=== PATIENT | female | born 1970 | race Caucasian/White ===

== ENCOUNTER 2022-09-19 14:17 | Outpatient (CLI) | payer OTHER, SELFPAY ==
--- OUTSIDE RECORDS SUMMARY | 2022-09-19 14:23 | XMS_ITS ---
:1970 Author Care Team Providers Name Role Phone [facility] Primary Care Provider [phone] Allergies Code Code System Name Reaction Severity Status Onset Penicillins ? ? Active ? Medications Name Status Start Date Stop Date ? ? alprazolam 0.5 mg tablet Active ? Not domenica ilable fluoxetine 20 mg capsule Active ? Not domenica ilable TAKE 1 CAPSULE BY MOUTH EVERY DAY levothyroxine 75 mcg tablet Active ? Not available TAKE 1 TABLET (75 MCG) BY MOUTH ONCE DAILY. simvastatin Completed ? 08/07/2022 simvastatin 20 mg tablet Active ? Not domenica ilable Synthroid 175 mcg tablet Completed ? 022 Take 1 tablet every day by oral route. Xanax Active ? Not available Problems No Known Problems Procedures Date Name Performed by ? 12/14/2020 US, Transvaginal [facility] [address] [address] [place], [place] [address] (Work Place) 12/14/2020 US, Pelvis [facility] [address] [address] [place], [place] [address] (Work Place) 12/14/2020 US, Pelvis, Transabdominal + [facility] [place] Transvaginal [address] [place], [place] [address] (Work Place) 08/07/2022 [facility] Radiology Department [address] [place] [address] (Work Place) Results Lab Results Date Name Specimen Result Interpretation Description Value Range Status Address ? 08/07/2022 Pap Test, Cervix ? Gynecologic see ? Deana Parekh Slide(s), Cytology results Fair view: Cervical below [address], [place] 08/07/2022 HPV DNA, ? Other hr negative negativ Final [facility] High-risk HPV e [place] w: [address], [place] ? ? ? Hpv16 Dna negative negativ Final [facility] [place]: [address], [place] ? ? ? Hpv18 Dna negative negativ Final [facility] [place]: [address], [place] ? ? ? Final see note ? Final [facility] Diagnosis below [place] w: [address], [place] 12/14/2020 Pap, LB + CERVIX&CERVI ? Case Report see note ? Complete [place] Reflex hr X Memoria l [facility] Health - Lab: [address], Tanner baumann 12/14/2020 Pathology CERVIX, ? Case Report see note ? C omplete [place] Study POLYPECTOMY& Noman rial CERVIX, Health - POLYPECTOMY Lab: [address], Tanner baumann Past Encounters 08/07/2022 Screening for Osteoporosis; Screening fo r Malignant Neoplasm of Cervix; Hip Pain; Vulvitis Beena Chaves MD: [address] [facility], [address], [place] [address], Ph. Social History Tobacco Smoking Status Former Smoker Notes: Tobacco *Status: Former Vaccine List None recorded. Plan of Care Patient Instructions BD ORDER Reminders Provider Appointments None recorded. ? ? Lab None recorded. ? ? Referral None recorded. ? ? Procedures None recorded. ? ? Surgeries None recorded. ? ? Imaging None recorded. ? ? Vitals 08/07/2022 12:00PM G_ANNUAL EXAM Height Weight BMI Blood Pressure 5 ft 4 in 177 lbs 30.4 kg/m2 159/91 mm[Hg] 12/14/2020 11:30AM G_NEW PT ANNUAL Height Weight BMI Blood Pressure 5 ft 4 in 180 lbs 30.9 kg/m2 160/90 mm[Hg] 09/22/2019 Height Weight BMI Blood Pressure 5 ft 3.96 in 162 lbs 27.81 kg/m2 120/72 mm[Hg] 03/19/2016 Height Weight BMI Blood Pressure 5 ft 3.96 in 180 lbs 30.90 kg/m2 142/88 mm[Hg] 01/24/2015 Height Weight BMI Blood Pressure 5 ft 3.96 in 180 lbs 30.90 kg/m2 (1) 136/88 mm[H g] (2) 148/72 mm[Hg ] 10/12/2013 Height Weight BMI Blood Pressure 5 ft 3.96 in 180 lbs 30.90 kg/m2 140/80 mm[Hg] 02/18/2012 Height Weight BMI Blood Pressure 5 ft 3.96 in 180 lbs 30.90 kg/m2 126/82 mm[Hg] 10/30/2010 Height Weight BMI Blood Pressure 5 ft 3.96 in 168 lbs 28.84 kg/m2 122/74 mm[Hg]
--- OUTSIDE RECORDS SUMMARY | 2022-09-19 14:23 | XMS_ITS | Encounter Summary ---
:1970 Author Care Team Providers Name Role Phone [facility] Primary Care Provider [phone] Reason for Visit *ANNUAL EXAM 40 - 64 POSTMENOPAUSAL Assessment and Plan Assessment Note LABS WITH PRIMARY 1. Screening for osteoporosis ? DEXA 2. Screening for malignant neoplasm of cervix ? Pap test, slide(s), cervical ? handling fee* 3. Hip pain DOES WORK OUT AND NO PAIN ON EXAM ADN ? LOWER QUAD VS HIP SO IF WANTS CAN DO CT BUT ALSO IF FEELS HIP REV TO PT AND FORM SEN T 4. Vulvitis POST FORCHETTE SL WHITE/BOSS AND RECENT INTERCOURSE PAINFUL SO LUBE REV AND HCTX CREAM AND RTC 5-6 WKS ADN IF STILL THERE BX ADN NO INTERCOURSE 1 WK BF EXAM Discussion Note colonoscopy mammogram bone density and calcium rev Patient educational handouts: No information available. Plan of Care Patient Instructions BD ORDER Reminders Provider Appointments None recorded. ? ? Lab Pap Test, Slide(s), 08/07/2022 [facility] Cervical Referral None recorded. ? ? Procedures None recorded. ? ? Surgeries None recorded. ? ? Imaging Dexa 08/07/2022 [facility] Radiology Depart ment Medications Name Start Date ? ? alprazolam 0.5 mg tablet ? TAKE 0.5-1 TABLETS (0.25-0.5 MG) BY MOUTH 2 TIMES QUIANA LY IF NEEDED. fluoxetine 20 mg capsule ? TAKE 1 CAPSULE BY MOUTH EVERY DAY levothyroxine 75 mcg tablet ? TAKE 1 TABLET (75 MCG) BY MOUTH ONCE DAILY. simvastatin 20 mg tablet ? TAKE 1 TABLET BY MOUTH AT BEDTIME Xanax ? Medications Administered None recorded. Vitals Height Weight BMI Blood Pressure 5 ft 4 in 177 lbs 30.4 kg/m2 159/91 mm[Hg] Results Lab Results Date Name Specimen Result Interpretation Description Value Range Status Address ? 08/07/2022 Pap Test, Cervix ? Gynecologic see ? Deana garcia [facility] Slide(s), Cytology results [place] view: [address], [place] Allergies Code Code System Name Reaction Severity Onset Penicillins ? ? ? Problems No Known Problems Procedures Date Name Performed by ? 08/07/2022 [facility] Radiology Department [address] [place] [address] (Work Place) Vaccine List None recorded. Social History Tobacco Smoking Status Former Smoker Notes: Tobacco *Status: Former What type of diet are you REGULAR following? What is the highest grade or level CK10210-5 of school you have completed or the highest degree you have received? Marital status Notes: Has tobacco cessation counseling N been provided? Are you currently employed? Y What was the date of your most 08/07/2022 recent tobacco screening? Do you have an advanced directive? N How many times per week do you 5-7 times per week exercise? Do you use any illicit or N recreational drugs? Is blood transfusion acceptable in Y an emergency? History of domestic violence N Notes: De nies any history of domestic violence What is your exercise level? Moderate Notes: Ex ercises on a regular basis *Note: 2-5 TORRIE RS WEEKLY What is your relationship status? Are you currently in school? N What is your level of alcohol Occasional consumption? How many times per week do you 1-2 times per week consume alcohol? Are you sexually active? Y Notes: Sexual ly active What is your level of caffeine Moderate Notes: Caffeine *Status: consumption? 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 Family History Relation Problem Onset Age of Age Notes Father Family history: neoplasm (No N/A Fam francisco History of - trachea/bronchus/lung Information) Canc er; Lung Mother Family history of (No N/A Family His tory of Cardiovascular disease Information) Hyper tension Mother Family history of (No N/A Family His tory of endocrine disorders Information) Hyperlip idemia Mother Heart disease (No N/A Heart Disease Information) Sister Family history of mental (No N/A Fam francisco History of disorder Information) Anxiety Sister Family history of Anemia (No N/A Fam francisco History of Information) Anemia Mother Diabetes mellitus (No N/A (No Notes) Information) Functional Status Unknown. Past Encounters 08/07/2022 Screening for Osteoporosis; Screening fo r Malignant Neoplasm of Cervix; Hip Pain; Vulvitis Beena Chaves MD: [address] [facility], [address], [place] [address], Ph. History of Present Illness Note: <p>Patient is a {{sexually active* non-sexually active}} menopausal female. She {{denies* endorses}} experiencing post-menopausal bleeding.</p><p>She {{denies any concerning menopausal symptoms* endorses having menopausal symptoms including:}}.</p><p>Last pap smear was {{never 1 year ago 2 years ago three years ago 4 years ago 5 years ago unknown many years ago [id number]#}}. I reviewed with the patient today ASCCP guidelines for recommended frequency of pap smear testing.Discussed that typically we discontinue cervical cancer screening at age 65 unless she has a concerning history.</p><p>She {{desires declines*}} STD testing today. She {{endorses denies*}} pain with intercourse.</p><p>She is {{due up-to-date*}} with colonoscopy.</p><p>She is {{due up-to-date*}} with mammography.</p><p>We reviewed the importance of osteoporosis prevention. Calcium and vitamin D supplementation, along with weight-bearing exercise, discussed today.</p><p>Today, patient has {{no some}} complaints that she wants to address. Past medical and surgical history were reviewed again today. Medication and allergy list made current.</p><p>She reports feeling {{safe* unsafe}} in her relationships. She {{endorses denies*}} history of abuse. She {{endorses* denies}} history of anxiety.</p>Review of Systems: ROS as noted in the HPI Review of Systems None recorded. Physical Exam ? Annual Exam ([facility]) Reported By: Patient Constitutional: *General Appearance: healthy -appearing, well-nourished, well-developed Head: Head: normocephalic Neck: *Thyroid: no enlargement, no nodules, non-tender Lymph Nodes: *Palpation: normal Cardiovascular: *Auscultation: RRR, no murmu r. *Peripheral Vascular: no varicosities, no edema Lungs: *Respiratory Effort: no acce ssory muscle usage, no intercostal retractions. *Auscultation: clear to auscultation, no wheezing, no rales/crackles, no rhonch i. Inspection: normal, normal respiratory rate *Breast: Bilateral: no skin changes, nipple appearance: normal, no abnormal nipple secretions, no tenderness, no masses palpable. Right Breast: normal. Left B reast: normal Abdomen: *Inspection/Palpation/Auscul tation: non-distended, no tenderness, no rebound, no g uarding, soft, no hepatomegaly, no splenomegaly. *Hernia: none palpated Back: Appearance normal. Palpation no costovertebral angle tenderness Female Genitalia: Vulva: no masses, no atrophy , no lesions. Mons: normal, no erythema, no excoriation, no atrophy, no lesions, no vesicles/ ulcers, no masses, no swelli ng, no tenderness. Labia Majora: normal, no erythema, no exco riation, no atrophy, no discoloration, no lesions, n o vesicles/ ulcers, no masses, no swelling, no tenderness. Lab ia Minora: normal, no erythema, no excoriation, no atrophy, no discoloration, no lesions, no vesicles, no masses, no swel ling, no tenderness. Introitus: normal. Bartholin's Gland: n ormal. *Vagina: normal, no discharge, no blood present, no erythema, no atrophy, no lesions, no ulcers, no swell ing, no masses, no tenderness, no prolapse. *Cervix: grossly n ormal, no lesions, no discharge, no bleeding, no cervical motion tenderness. *Uterus: normal size, normal contour, midline, no uterine prolapse, mobile, non-tender. *Urethral Meatus / Urethra: normal meatus, no discharge, well supported ur ethra, no masses, no tenderness. *Bladder: non-distended, no palpable mass, non-tender. *Adnexa/Parametria: no mass palpable, no tenderness Rectum: *Anus & Perineum: normal per ianal skin, no anal fissure, no hemorrhoids, normal perineum . *Digital Rectal: sphincter tone normal, no hemorrhoids, no m asses, normal rectovaginal septum Extremities: Legs: normal. Arms: normal. Pulses: normal Skin: *Appearance: no rashes, no l esions Neurological System: Impressions: motor: no defic its, sensory: no deficits Psychiatric: *Orientation: to person, to place, to time. *Mood and Affect: active and alert, normal moo d, normal affect
--- OUTSIDE RECORDS SUMMARY | 2022-09-19 14:23 | XMS_ITS | Clinical Summary ---
:1970 Author Organization [facility] Address [address], [place] [address] Care Team Providers Name Role Phone Chandrakant Montiel MD Primary Care Provider Source Comments You are receiving this document as you are listed as the primary care provider,follow-up provider, or the patient has been referred to you for consultation.This is in compliance with the Medicare and Medicaid EHR Incentive Program,which states Providers who transition their patient to another setting of careor provider of care or refers their patient to another provider of care shouldprovide summarycare record for each transition of care or referral. [facility] Allergies Active Allergy Reactions Severity Noted Date Comments Penicillins Rash 09/22/2014 Medications Medication Sig Dispensed Refills Start Date End Date Status FLUoxetine (AKA PROZAC) Take 20 mg by 0 09/22/2014 Active 20 MG capsule mouth daily (every 24 hours). levothyroxine Take 75 mcg by 0 A ctive (SYNTHROID) 75 MCG mouth daily. tablet ALPRAZolam (XANAX) 0.25 Take 0.5 mg by 0 Active MG tablet mouth at bedtime as needed. Immunizations Name Administration Dates Next Due Flu Vac Preserv Free (3+yrs) 09/04/2010, 08/22/2009 H1n1 Miv Sanofi 3+ Yr (Injected) 10/26/2009 Influenza IIV4 (Quadrivalent) 0.5mL 08/14/2016, 08/31/2014, 08/28/2013 (30640) Social History Tobacco Use Types Packs/Day Years Used Date Smoking Tobacco: Former Smokeless Tobacco: Never Sex Assigned at Date Recorded Not on file Plan of Treatment Health Maintenance Due Date Last Done Comments Cervical Cancer Screening 1970 Due Colon Cancer Screening Plan 1970 Due Hep C Screening (Preventive 1970 Services) HepB (1) 1970 Mammogram 1970 COVID-19 Vaccine (#1) 04/04/1971 HIV Screening (Preventive 1986 Services) Adult Preventive Visit 1988 Cholesterol 2015 Zoster/Shingles (1 of 2) 2020 Influenza (#1) 2022 09/13/2020, 08/31/2020, 08/26/2019, Additional history exists DTaP/Tdap/Td (2 - Tdap) 04/27/2026 04/27/2016 HepA Aged Out No longer eligib le based on patient 's age to complete this topic Hib Aged Out No longer eligib le based on patient 's age to complete this topic IPV (Polio) Aged Out No longer eligib le based on patient 's age to complete this topic MCV4 Aged Out No longer eligib le based on patient 's age to complete this topic Pneumococcal Aged Out No longer eligib le based on patient 's age to complete this topic Insurance Payer Benefit Plan / Subscriber ID Effective Dates Phone Addre ss Type Group [employer] S[employer]F [employer]ED [id number] 2013-Present Commercial Care Teams Can Operator Relationship Specialty Start Date End Date Chandrakant Montiel MD PCP - General 09/22/14 [id number] [place] [address]
--- OUTSIDE RECORDS SUMMARY | 2022-09-19 14:23 | XMS_ITS | Encounter Summary ---
:1970 [facility] Address [address] [place] [address] Care Team Providers Name Role Phone Chandrakant Montiel MD Primary Care Provider Encounter Details Date Type Department Care Team Description 08/14/2016 Immunization [facility], Cole Boo Need for prophylactic Medicine vaccination and [address] [address] inoculation against [place], [place] influenza ([facility] ramin Dx) [id number] Social History Tobacco Use Types Packs/Day Years Used Date Smoking Tobacco: Never Assessed Sex Assigned at Date Recorded Not on file documented as of this encounter Plan of Treatment Not on filedocumented as of this encounter Visit Diagnoses Diagnosis Need for prophylactic vaccination and in oculation against influenza - Primary documented in this encounter Care Teams Facilities Locator Relationship Specialty Start Date End Date Chandrakant Montiel MD PCP - General 09/22/14 [address] [facility] [address] [place] [address] documented as of this encounter
--- OUTSIDE RECORDS SUMMARY | 2022-09-19 14:23 | XMS_ITS | Encounter Summary ---
:1970 Author Organization [employer] Address [address] [place] [address] Care Team Providers Name Role Phone Chandrakant Montiel MD Primary Care Provider Reason for Visit Reason Comments FULL BODY CHECK Encounter Details Date Type Department Care Team Description 07/23/2017 Office Visit [facility] [address] April Kenyon MD Benign neoplasm of Dermatology [address] skin of trunk [address] [facility] (Primary Dx) [place] [address] [phone] Social History Tobacco Use Types Packs/Day Years Used Date Smoking Tobacco: Former Smokeless Tobacco: Never Sex Assigned at Date Recorded Not on file documented as of this encounter Progress Notes April Kenyon MD - 07/23/2017 12:30 PM CDT Chief complaint: Skin check HPI: Taylor Shea is a 46 y.o. female here for evaluation of a routine skin check. Denies any painful, bleeding, nonhealing spots. Denies any changing, growing moles. No history of skin cancer. Family history of some type of skin cancer in her grandmother. PMH: No past medical history on file. Medications: Outpatient Medications Prior to Visit Medication Sig Dispense Refill ??? FLUoxetine (AKA PROZAC) 20 MG capsule Take 20 mg by mouth daily (every 24 hours). No facility-administered medications prior to visit. Allergies: Allergies Allergen Reactions ??? Penicillins Rash FH: Family history of some type of skin cancer in her grandmother. SH: Social History Social History ??? Marital status: Single Spouse name: N/A ??? Number of children: N/A ??? Years of education: N/A Occupational History ??? Not on file. Social History Main Topics ??? Smoking status: Former Smoker ??? Smokeless tobacco: Never Used ??? Alcohol use Not on file ??? Drug use: Not on file ??? Sexual activity: Not on file Other Topics Concern ??? Not on file Social History Narrative ??? No narrative on file ROS: Complete 8 pt ROS obtained and negative. See HPI for pertinent positives. PE: Healthy appearing female in no acute distress. Alert and oriented x 3. Exam includes : scalp, face, neck, chest, back, arms, legs, abdomen, fingernails. Pertinent findings include: - scattered 1-2 red papules - a few red brown papules on legs -scattered brown macules A/P: 1. Benign junctional nevi and angiomas. Discussed ABCDs of melanoma as well as signs and symptoms ofnonmelanoma skin cancer. Encouraged daily sunscreen such as Oil of Olay with SPF 15 or 30, or Ceravewith SPF 30. 2. The patient is asked to return in 2-3 years. documented in this encounter Plan of Treatment Not on filedocumented as of this encounter Visit Diagnoses Diagnosis Benign neoplasm of skin of trunk - Prima ry Benign neoplasm of skin of trunk, except scrotum documented in this encounter Care Teams Welder/Fitter Relationship Specialty Start Date End Date Chandrakant Montiel MD PCP - General 09/22/[address] [address] documented as of this encounter
--- OUTSIDE RECORDS SUMMARY | 2022-09-19 14:23 | XMS_ITS | Encounter Summary ---
:1970 Author Organization [facility] Address [address], [place] [address] Care Team Providers Name Role Phone Unavailable Primary Care Provider Unavailable Encounter Details Date Type Department Care Team Description 08/28/2013 Immunization [facility] Need for influenza [id number] vaccination (Primary Dx) [place] [address] Social History Tobacco Use Types Packs/Day Years Used Date Smoking Tobacco: Never Assessed Sex Assigned at Date Recorded Not on file documented as of this encounter Plan of Treatment Not on filedocumented as of this encounter Visit Diagnoses Diagnosis Need for influenza vaccination - Primary Need for prophylactic vaccination and in oculation against influenza documented in this encounter
--- OUTSIDE RECORDS SUMMARY | 2022-09-19 14:23 | XMS_ITS | Encounter Summary ---
:1970 Author Organization [facility] Address [address] [place] [address] Care Team Providers Name Role Phone Unavailable Primary Care Provider Unavailable Encounter Details Date Type Department Care Team Description 01/17/2009 PN Conversion Only [employer] [address] Anshu Webb MD [address] [place] [address] [place] [address] (Wo rk) Social History Tobacco Use Types Packs/Day Years Used Date Smoking Tobacco: Never Assessed Sex Assigned at Date Recorded Not on file documented as of this encounter Plan of Treatment Not on filedocumented as of this encounter Visit Diagnoses Not on filedocumented in this encounter
--- OUTSIDE RECORDS SUMMARY | 2022-09-19 14:23 | XMS_ITS | Encounter Summary ---
:1970 Author Organization [facility] Address [address], [place] [address] Care Team Providers Name Role Phone Unavailable Primary Care Provider Unavailable Encounter Details Date Type Department Care Team Description 07/17/2010 Office Visit [facility] [address] April Kenyon MD Dermatology [address] [facility] [address] [place] [address] [place] [address] [phone] Social History Tobacco Use Types Packs/Day Years Used Date Smoking Tobacco: Never Assessed Sex Assigned at Date Recorded Not on file documented as of this encounter Progress Notes April Kenyon MD - 07/17/2010 12:01 AM CDT NAME: BASHIR LAGUNAS MR#: [id number] ACCT: [id number] VISIT: [id number] DICTATING CLINICIAN: April Kenyon MD CONFIRM #: [id number] LOC: 427 CLINIC PROGRESS NOTE DATE OF VISIT: 07/17/2010 : 1970 CHIEF COMPLAINT: Skin check. HISTORY OF PRESENT ILLNESS: Bashir is a pleasant 39-year-old female, who works here at [employer], who is here for a routine skin check. She has no history of skin cancer. She denies any changing or growing or nonhealing spots. She does wear routine sunscreen on her face, neck, and hands. PAST MEDICAL HISTORY: Reviewed and updated. MEDICATIONS: Reviewed and updated in [employer]. ALLERGIES: PENICILLIN. FAMILY HISTORY: There is a family history of some type of skin cancer in her grandmother. She is not certain what type. REVIEW OF SYSTEMS: A complete 8-point review of systems was obtained. Please see HPI for pertinent positives and negatives. The remainder of the review of systems was negative. PHYSICAL EXAM: GENERAL: Healthy-appearing female in no acute distress. Alert and x3. SKIN: Complete skin check was performed, including examination and palpation of her scalp, face, neck, chest, back, abdomen, upper and lower extremities. She does have a few brown symmetric macules on the abdomen, arms, and legs. She has a few red papules consistent with angiomas. I do not see anything concerning for melanoma or non-melanoma skin cancer. ASSESSMENT AND PLAN: Benign junctional nevi. Reviewed ABCDs of melanoma as well as signs and symptoms of non-melanoma skin cancer. Recommend followup in 1 year for routine skin check, sooner if needed. TERRENCE:MATTHEW C: CONFIRM #: [id number] documented in this encounter Plan of Treatment Not on filedocumented as of this encounter Visit Diagnoses Not on filedocumented in this encounter
--- OUTSIDE RECORDS SUMMARY | 2022-09-19 14:23 | XMS_ITS | Encounter Summary ---
:1970 Author Organization [facility] Address [address] [place] [address] Care Team Providers Name Role Phone Chandrakant Montiel MD Primary Care Provider Reason for Visit Reason Comments Skin Check Encounter Details Date Type Department Care Team Description 09/22/[address] [facility] 38[address] April Kenyon MD Screening for Dermatology [address] malignant neoplasm [address] of [address] skin ([address] [place], [place] Dx) [place] [address] [phone] Social History Tobacco Use Types Packs/Day Years Used Date Smoking Tobacco: Never Assessed Sex Assigned at Date Recorded Not on file documented as of this encounter Progress Notes April Kenyon MD - 09/22/2014 8:53 PM CDT Chief complaint: Skin check HPI: Taylor Shea is a 43 y.o. female here for evaluation of a routine skin check. Denies any painful, bleeding, nonhealing spots. Denies any changing, growing moles. No history of skin cancer. Family history of some type of skin cancer in her grandmother. PMH: No past medical history on file. Medications: No current outpatient prescriptions on file prior to visit. No current facility-administered medications on file prior to visit. Allergies: Allergies Allergen Reactions ??? Penicillins Rash FH: Family history of some type of skin cancer in her grandmother. SH: History Social History ??? Marital Status: Single Spouse Name: N/A Number of Children: N/A ??? Years of Education: N/A Occupational History ??? Not on file. Social History Main Topics ??? Smoking status: Not on file ??? Smokeless tobacco: Not on file ??? Alcohol Use: Not on file ??? Drug Use: Not on file ??? Sexual Activity: Not on file Other Topics Concern ??? Not on file Social History Narrative ROS: Complete 8 pt ROS obtained and negative. See HPI for pertinent positives. PE: Healthy appearing female in no acute distress. Alert and oriented x 3. Exam includes : scalp, face, neck, chest, back, arms, legs, abdomen, fingernails. Pertinent findings include: - scattered 1-2 red papules A/P: 1. Benign junctional nevi and angiomas. Discussed ABCDs of melanoma as well as signs and symptoms ofnonmelanoma skin cancer. Encouraged daily sunscreen such as Oil of Olay with SPF 15 or 30, or Ceravewith SPF 30. 2. The patient is asked to return in 2-3 years. IShila, am serving as a scribe to document services personally performed by April Kenyon MD at this visit, based upon the providers statements to me. All documentation has been reviewed by the aforementioned doctor prior to being entered into the official medical record. Entered on 09/22/2014 at 10:00 AM. IApril, attest that the above named individual is acting in scribe capacity, has observed myperformance of the services performed at this visit and has documented them in accordance with my direction. Entered on 09/22/2014 at 8:53 PM. documented in this encounter Plan of Treatment Not on filedocumented as of this encounter Visit Diagnoses Diagnosis Screening for malignant neoplasm of the skin - Primary documented in this encounter Care Teams Integrated Marketing Intern Relationship Specialty Start Date End Date Chandrakant Montiel MD PCP - General 09/22/14 [address] [address] documented as of this encounter
--- OUTSIDE RECORDS SUMMARY | 2022-09-19 14:23 | XMS_ITS | Encounter Summary ---
:1970 Author Organization [facility] Address [address] [place] [address] Care Team Providers Name Role Phone Unavailable Primary Care Provider Unavailable Encounter Details Date Type Department Care Team Description 11/25/1989 PN Conversion Only [facility] [address] [place] [address] Social History Tobacco Use Types Packs/Day Years Used Date Smoking Tobacco: Never Assessed Sex Assigned at Date Recorded Not on file documented as of this encounter Plan of Treatment Not on filedocumented as of this encounter Visit Diagnoses Not on filedocumented in this encounter
--- OUTSIDE RECORDS SUMMARY | 2022-09-19 14:23 | XMS_ITS | Clinical Summary ---
:1970 Author Organization [facility] [place] [address] Care Team Providers Name Role Phone Omero Sharpe Primary Care Provider Allergies Active Allergy Reactions Severity Noted Date Comments Penicillins Rash 02/09/2015 Medications Medication Sig Dispensed Refills Start Date End Date Status multivitamin (MVI) Take 1 tablet 0 02/09/2015 Active tablet by mouth once daily. cholecalciferol (VITAMIN Take 1 capsule 0 08/05/2015 Active D) 1,000 unit capsule by mouth once daily. calcium carbonate (TUMS) Take 1 tablet 0 12/15/2020 Active 200 mg calcium (500 mg) by mouth once chewable tablet daily. ALPRAZolam (XANAX) 0.5 Take 0.5-1 20 Tablet 1 08/02/2022 Active mg tabletIndications: Tablets Fear of flying (0.25-0.5 mg) by mouth 2 times daily if needed for anxiety FLUoxetine (PROZAC) 20 Take 1 Capsule 90 Capsule 3 08/02/2022 Active mg capsuleIndications: (20 mg) by Anxiety mouth once daily. levothyroxine Take 1 Tablet 90 Tablet 3 08/02/2022 A ctive (SYNTHROID) 75 mcg (75 mcg) by tabletIndications: Other mouth once specified hypothyroidism daily. simvastatin (ZOCOR) 20 Take 1 Tablet 90 Tablet 3 08/02/2022 Active mg tabletIndications: (20 mg) by Hyperlipidemia, mouth at unspecified bedtime. 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 Hypothyroidism 11/25/2014 Encounters Date Type Specialty Care Team Description 08/03/2022 Orders Only Omero Sharpe PA <No s cans attached> 08/02/2022 Office Visit Omero Sharpe PA Physi leslie (Fasting labs); Pain (Right sol e muscle pain); Ear Prob christal 08/02/2022 Travel 07/22/2022 Refill Omero Sharpe PA Refil l Request (Fluoxetine) from Last 3 Months Immunizations Name Administration Dates Next Due AMB INFLUENZA, IIV4 (AGE=>6MOS) MDV 09/13/2020 (Flu Clinic Only) COVID-19 vaccine ([employer] 12/06/2020, 11/16/2020 30mcg/0.3mL) PF, MDV Influenza A (H1N1), Inactivated 10/26/2009 Influenza Virus, Unspecified 09/04/2010, 08/22/2009 Influenza, IIV3 (Age 6-35 mos) 08/31/2020 Influenza, IIV3 (Age >=3 years) 12/08/2014, 08/31/2014, 02/2013, 09/04/2010, 08/22/2009 Influenza, IIV4 09/11/2017, 08/14/2016, 12/08/2014, 08/31/2014 Influenza, IIV4 (=>6mos) MDV 08/23/2021 Influenza, IIV4 (Age 6-35 Mos) 08/28/2013 MMR 01/16/2016 Tdap 04/27/2016 Family History Medical History Relation Name Comments Cancer Father lung Heart Disease Maternal Aunt 1 Cancer-colon Maternal Aunt 2 Cancer Maternal Grandfather bladder Heart Disease Maternal Grandfather Heart Disease Maternal Grandmother Heart Disease Maternal Uncle 1 Heart attack Maternal Uncle 2 triple bypass Diabetes Mother Thyroid Disease Mother Cancer Other 1 COUSIN lung to brain Suicidality Other 2 x 2 cousins both in their 50 s Cancer-prostate Paternal Grandfather Cerebral aneurysm Paternal Grandmother Anxiety disorder Sister 1 Depression Sister 1 Other Sister 1 obesity Art's thyroiditis Sister 2 Relation Name Status Comments Father Maternal Aunt 1 Alive Maternal Aunt 2 Maternal Grandfather Maternal Grandmother Maternal Uncle 1 Maternal Uncle 2 Alive Mother Alive Other 1 COUSIN Other 2 x 2 cousins Paternal Grandfather Paternal Grandmother Sister 1 Alive Sister 2 Alive Social History Tobacco Use Types Packs/Day Years Used Date Former Smoker Quit: 11/25/18 96 Smokeless Tobacco: Never Used Alcohol Use Standard Drinks/Week Comments Yes 4 (1 standard drink = 0.6 oz pure alcoho l) Alcohol Habits Answer Date Recorded How often do you have a drink containing alcohol? 2-4 times a month 06/08/2020 How many drinks containing alcohol do you have on a Not aske d typical day when you are drinking? How often do you have six or more drinks on one Not asked occasion? Comment: Not asked Sex Assigned at Date Recorded Not on file Obstetrics History Last Filed Vital Signs Vital Sign Reading Time Taken Comments Blood Pressure 110/68 08/02/2022 9:13 AM CDT Pulse 46 07/12/2021 8:57 AM CDT Temperature 37.1 ??C (98.7 ??F) 05/07/2017 9:41 AM CDT Respiratory Rate - - Oxygen Saturation - - Inhaled Oxygen Concentration - - Weight 79.4 kg (175 lb) 08/02/2022 9:13 AM CDT Height 163.8 cm (5' 4.5) 08/02/2022 9:13 AM CDT Body Mass Index 29.57 08/02/2022 9:13 AM CDT Plan of Treatment Health Maintenance Due Date Last Done Comments Hepatitis C screening for age 1110[birth year]1988 18-79 Zoster (shingles) series for age 1110/05/2020 50+ (1 of 2) COVID-19 vaccine series (5 - 05/15/2022 03/20/2022, 021, Booster for Pfizer series) 12/06/2020, Additiona l history exists Influenza for age 50-64 07/26/2022 08/23/2021, 09/13/2020, 09/11/2017, Additional history exists Mammogram for age 45-75 11/28/2022 11/28/2021 (Completed ou tside of [facility]), 10/25/2019 (Completed outside of [facility]), 10/08/2018 (Completed outside of [facility]), Additional history exists BMI (ht and wt on same day) for 08/02/2023 08/02/2022, 06/25, age 18+ 06/08/2020, Additional history exists Depression screening for age 12+ 08/03/2023 08/03/2022, 06/2022, 07/12/2021, Additional history exists Pap test for age 21-65 08/02/2025 08/02/2022 (Completed out side of [facility]), 08/25/2019 (Completed outside of [facility]), 03/25/2016, Additional history exists Tetanus booster 04/27/2026 04/27/2016 Lipids for age 45-75 08/02/2027 08/02/2022, 07/12/2021, 06/08/2020, Additional history exists Colonoscopy through age 75 12/29/2030 12/29/2020 Tdap Completed 04/27/2016 Procedures Procedure Name Priority Date/Time Associated Diagnosis Comme nts GLUCOSE, FASTING Add On 08/02/2022 9:48 AM Screening for diab etes Results for this CDT mellitus procedure are i n the results section. TSH WITH REFLEX Routine 08/02/2022 9:48 AM Other specified Res ults for this CDT hypothyroidism procedure are in the results section. LIPID PANEL W Routine 08/02/2022 9:48 AM Hyperlipidemia, Resul ts for this REFLEX MEASURED CDT unspecified procedure ar e in LDL hyperlipidemia type the resu lts section. from Last 3 Months Results TSH WITH REFLEX (08/02/2022 9:48 AM CDT) athologist Signature TSH 2.28 0.35 - 4.94 08/02/2022 [facility] uIU/mL 11:31 PM CDT LABORATORY-CENTR AL LABORATORY Specimen Anatomical Collection Method / Collection Time Recei david Time (Source) Location / Volume Laterality Blood BLOOD SPECIMEN / Venipuncture / 08/02/2022 9:48 2021 9:48 Unknown Unknown AM CDT AM CDT Narrative [facility] LABORATORY-CENTRAL [facility] - 08/02/2022 11:31 PM CDT In Adults, TSH values between 5.00 and 10.00 uIU/ml do not necessarily indicate the presence of Hyp othyroidism. Correlation with clinical findings such as presence of goiter and/or Thyroperoxidase (TPO) Antibody ma y be helpful. For more information please refer to NIMIS[facility] 20 ; 291: 228-238. Omero RAYO CHEMISTRY Performing Organization Address City/State/ZIP Code Phon e Number [facility] [address] [place] [address] [place] [address] LABORATORY-CENTRAL 2000 LABORATORY (ABNORMAL) LIPID PANEL W REFLEX MEASURED LDL (08/02/2022 9:48 AM CDT) [facility] gist Method Time Signature CHOLESTEROL,TOTAL 220 (H) 100 - 199 08/02/2022 [facility] mg/dL 11:06 PM CDT LABORATORY-[facility] TRAL LABORATORY TRIGLYCERIDES 114 <150 08/02/2022 [facility] mg/dL 11:06 PM CDT LABORATORY-[facility] TRAL LABORATORY HDL CHOLESTEROL 57 >40 mg/dL 08/02/2022 [facility] 11:06 PM CDT LAB[facility]ATORY-[facility] TRAL LABORATORY NON-HDL 163 (H) <145 08/02/2022 [facility] CHOLESTEROL mg/dl 11:06 PM CDT LABORATORY-[facility] TR[facility] LABORATORY CHOL/HDL RATIO 3.86 <4.50 08/02/2022 [facility] 11:06 PM CDT [facility]ATORY[facility] TR[facility] LABORATORY LDL CHOLESTEROL 140 (H) <=130 08/02/2022 [facility] mg/dL 11:06 PM CDT LAB[facility]ATORY-[facility] TRAL LABORATORY VLDL CHOLESTEROL 23 <=30 08/02/2022 [facility] mg/dL 11:06 PM CDT LAB[facility]ATORY-[facility] TRAL LABORATORY PROVIDER ORDERED FASTING 08/02/2022 [facility] STATUS 11:06 PM CDT LABORATORY-[facility] TRAL LABORATORY Specimen Anatomical Collection Method / Collection Time Recei david Time (Source) Location / Volume Laterality Blood BLOOD SPECIMEN / Venipuncture / 08/02/2022 9:48 2021 9:48 Unknown Unknown AM CDT AM CDT Omero RAYO CHEMISTRY Performing Organization Address City/[facility]/ZIP Code Phon e Number [facility] [address] [place], [place] [address] [address] LABORATORY-CENTRAL 2000 LABORATORY GLUCOSE, FASTING (08/02/2022 9:48 AM CDT) athologist Signature GLUCOSE 96 65 - 100 08/02/2022 [facility] mg/dL 11:01 PM CDT LABORATORY-CENTR AL LABORATORY Specimen Anatomical Collection Method / Collection Time Recei david Time (Source) Location / Volume Laterality Blood BLOOD SPECIMEN / Venipuncture / 08/02/2022 9:48 2021 9:48 Unknown Unknown AM CDT AM CDT Omero RAYO CHEMISTRY Performing Organization Address City/State/ZIP Code Phon e Number [facility] [address] [place] [address] LABORATORY-CENTRAL 1999 LABORATORY from Last 3 Months Insurance Payer Benefit Plan / Subscriber ID Effective Dates Phone Addre ss Type Group [employer] [id number] 2014-Present [address] [place] [address] Care Teams Disability Specialist Relationship Specialty Start Date End Date Omero Sharpe PA PCP - General Family Practice 05/05/18 [address] [place] [address]
--- OUTSIDE RECORDS SUMMARY | 2022-09-19 14:23 | XMS_ITS | Encounter Summary ---
:1970 Author Organization [facility] Address [address], [place] [address] Care Team Providers Name Role Phone Unavailable Primary Care Provider Unavailable Encounter Details Date Type Department Care Team Description 01/24/2009 PN Conversion Only [facility] [address] [place] [address] Social History Tobacco Use Types Packs/Day Years Used Date Smoking Tobacco: Never Assessed Sex Assigned at Date Recorded Not on file documented as of this encounter Plan of Treatment Not on filedocumented as of this encounter Visit Diagnoses Not on filedocumented in this encounter
--- OUTSIDE RECORDS SUMMARY | 2022-09-19 14:23 | XMS_ITS | Encounter Summary ---
:1970 Author Organization [facility] Address [address] [place] [address] Care Team Providers Name Role Phone Unavailable Primary Care Provider Unavailable Encounter Details Date Type Department Care Team Description 07/14/2010 PN Conversion Only [facility] Social History Tobacco Use Types Packs/Day Years Used Date Smoking Tobacco: Never Assessed Sex Assigned at Date Recorded Not on file documented as of this encounter Plan of Treatment Not on filedocumented as of this encounter Visit Diagnoses Not on filedocumented in this encounter
--- OUTSIDE RECORDS SUMMARY | 2022-09-19 14:23 | XMS_ITS | Encounter Summary ---
:1970 Author Organization [facility] Address [address], [place] [address] Care Team Providers Name Role Phone Chandrakant Montiel MD Primary Care Provider Reason for Visit Reason Comments FULL BODY CHECK Encounter Details Date Type Department Care Team Description 02/22/2021 Office Visit [facility] 3800 April Kenyon MD Multiple benign nevi (Primary Dx); Dermatology [address] [facility] [place]; [address] [facility] [address] angioma; Blvd [place], [place] Dermatofibroma; [place] [address] Sun-damaged skin; [address] Seborrheic keratosis [phone] Social History Tobacco Use Types Packs/Day Years Used Date Smoking Tobacco: Former Smokeless Tobacco: Never Sex Assigned at Date Recorded Not on file documented as of this encounter Progress Notes April Kenyon MD - 02/22/2021 9:15 AM CDT Problem List None Chief Complaint Patient presents with ??? FULL BODY CHECK History of Present Illness: Taylor Shea is a 50 y.o. female who presents to clinic today for a skin check. She was last seenin Dermatology on 07/23/2017 by me. At that time there were no concerning findings. Today, she has no specific areas of concern. Patient is otherwise not aware of any lesions that are changing, burning, itching or bleeding. No acute concerns. Past Medical History: Not significant for skin cancer Family History: Family history of some type of skin cancer in her grandmother. Social History: She presents with her , who is also a patient of mine. She tries to be good about sun protection and wears SPF 15 on her face daily. She tries to wear a higher SPF in the summer. Medications: The patient has a current medication list which includes the following prescription(s): alprazolam, fluoxetine, and levothyroxine. Allergies: The patient is allergic to penicillins. Review of Systems: Denies fevers, chills, night sweats, nausea, vomiting, diarrhea. No new pains. Otherwise feels normal. No unintended weight loss. Physical Examination: General: Well-appearing female, in no distress, alert and oriented. Skin: Full body skin exam performed including the head, neck, chest, back, abdomen, arms, and legs. Did not examine genitals. Pertinent findings: - Firm, brown, 4 mm papule on the right medial thigh - Scattered 3-5 mm uniformly colored, bland, symmetrical brown macules and papules on trunk, arms, and legs. No features specific for melanoma on exam today. - Several brown waxy papules located on the trunk and extremities. On dermoscopy, these have pseudohorn cysts and no pigment pattern. - Bright red 1-3 mm papules are visualized on the trunk. - Scattered brown macules and actinic damage on sun-exposed extremities Exam otherwise was normal. Assessment and Plan: 1. Dermatofibroma. Patient is reassured regarding the benign nature of this finding. Return for evaluation if any growth or change occurs. 2. Benign-appearing nevi. No lesions worrisome for melanoma observed on exam today. Reviewed ABCDE principal and ugly duckling rule of melanoma recognition. 3. Seborrheic keratosis. These are benign. Reassurance provided. 4. Angiomas. These are benign. Reassurance provided. 5. Sun damaged skin, lentigines Discussed ABCDs of melanoma as well as signs and symptoms of nonmelanoma skin cancer. Encouraged daily sunscreen such as Oil of Olay with SPF 15 or 30, or Cerave with SPF 30. Follow up: Return to clinic in 2-3 years for full body skin exam, sooner for new concerns. Scribe Disclosure: Alicia Kay, am serving as a scribe to document services personally performed by April Kenyon MD at this visit, based upon the provider's statements to me. Entered on 02/22/21 at 9:43 AM. I, April Kenyon MD, attest that the above named individual is acting in scribe capacity, has observed my performance of the services performed at this visit and has documented them in accordance with my direction. Entered on 02/22/2021 at 8:32 PM. documented in this encounter Plan of Treatment Not on filedocumented as of this encounter Visit Diagnoses Diagnosis Multiple benign nevi - Primary Benign neoplasm of skin, site unspecifie d [place]igo Other dyschromia Shoemaker angioma Nevus, non-neoplastic Dermatofibroma Benign neoplasm of skin, site unspecifie d Sun-damaged skin Other chronic dermatitis due to solar ra diation Seborrheic keratosis Other seborrheic keratosis documented in this encounter Care Teams Dianetic Counselor Relationship Specialty Start Date End Date Chandrakant Montiel MD PCP - General 09/22/14 [address] [address] documented as of this encounter
--- NOTE | 2022-09-19 14:30 | CRLHL7_ITS ---
For Patients: As a result of the Century Cures Act, medical imaging exams and procedure reports are released immediately into your electronic medical record. You may view this report before your referring provider. If you have questions, please contact your health care provider. DXA BONE MINERAL DENSITY STUDY Current height (in): 65.0. Weight (lb): 172.0. Menopause age: 44. Ethnicity: White. Reason for exam: Screening. 1. Have you had a previous hip or vertebral fracture? No. 2. Have you had any fractures during your adult life which did not result from significant trauma (e.g., auto accident)? No. 3. Did either of your parents have a hip fracture? No. 4. Do you smoke? No. 5. Have you ever taken Glucocorticoids? No. 6. Do you have rheumatoid arthritis? No. 7. Do you have secondary osteoporosis? No. 8. Do you drink 3 or more alcoholic drinks per day? No. 9. Are you being treated for osteoporosis? No. 10. Have you ever taken any of the following medications: Actonel, Evista, Fosamax, Miacalcin, Reclast, Boniva, Forteo, HRT (i.e. estrogen/hormone therapy), Protelos, Prolia, Vitamin D, Calcium, other ??? please specify. ANSWER: Yes, calcium, vitamin D. 11. Do you have any of the following medical conditions: Anorexia or bulimia, asthma or emphysema, end stage renal disease, hyperparathyroidism, any seizure disorders, cancer, inflammatory bowel diseases, hysterectomy, other ??? please specify. ANSWER: No. 12. What was your maximum height (inches)? 56. 13. Do you perform weight bearing exercise regularly? Yes. 14. Do you regularly consume dairy products? Yes. 15. Do you drink caffeinated beverages? Yes. If female: 16. At what age did your period start? 12. 17. Are you premenopausal? No. 18. How many full term pregnancies have you had? 0. 19. Have you ever missed your period for more than 6 months in a row (not including or menopause)? No. TECHNIQUE: Bone mineral density study was performed using the [employer]. FINDINGS: The results of the study expressed as bone mineral density (BMD) are as follows: Lumbar spine L1 to L4: BMD: 0.953 g/cm2. T-score: -0.9. Z-score: 0.0. Neck Left: BMD: 0.848 g/cm2. T-score: -0.0. Z-score: 0.9. Right: BMD: 0.855 g/cm2. T-score: 0.1. Z-score: 0.9. Total Left: BMD: 1.009 g/cm2. T-score: 0.5. Z-score: 1.1. Right: BMD: 1.064 g/cm2. T-score: 1.0. Z-score: 1.5. IMPRESSION: Normal bone density. Celso Howard M.D. Diagnostic Radiologist [email or web address] Transcribed: 10:18 a.m. DW/Dictated by: Celso Howard MD @ 09/20/2022 9:21:00 AM (Electronically Signed)
== END 2022-09-19 14:18 | disposition home or self-care (01) ==
LOC: RAD 14:20
PROVIDERS: PCP Physician Assistant Medical; Visit Provider Obstetrics & Gynecology
DX: Z13.820 Encounter for screening for osteoporosis (principal)
CPT/HCPCS: 77080

== ENCOUNTER 2023-03-05 16:29 | Outpatient (CLI) | payer OTHER, SELFPAY ==
--- NOTE | 2023-03-05 16:45 | CRLHL7_ITS ---
For Patients: As a result of the Cures Act, medical imaging exams and procedure reports are released immediately into your electronic medical record. You may view this report before your referring provider. If you have questions, please contact your health care provider. BILATERAL SCREENING MAMMOGRAM WITH COMPUTER-AIDED DETECTION AND TOMOSYNTHESIS TECHNIQUE: CC and MLO views were obtained. These mammographic images have been obtained using full-field digital technique. These mammographic images were interpreted with the benefit of computer-aided detection. Breast Tomosynthesis was used in this interpretation. COMPARISON FILM: 12/18/21, 12/05/20, 10/26/19. FINDINGS: The breasts are heterogeneously dense, which may obscure small masses IMPRESSION: There is no radiographic evidence for malignancy. ASSESSMENT: BI-RADS Category 1: Negative RECOMMENDATION: Routine screening mammogram in 1 year. A lay language report of this examination will be provided to the patient. Celso Howard M.D. Diagnostic Radiologist [email or web address] DEONNA/modesta Transcribed: 4:40 p.sara byers/Dictated by: Celso Howard MD @ 03/06/2023 9:37:00 AM (Electronically Signed)
== END 2023-03-05 16:30 | disposition home or self-care (01) ==
LOC: MAMMO 16:30
PROVIDERS: Visit Provider Obstetrics & Gynecology
DX: Z12.31 Encounter for screening mammogram for malignant neoplasm of breast (principal); R92.2 Inconclusive mammogram
CPT/HCPCS: 77063; 77067

== ENCOUNTER 2024-06-08 11:21 | Outpatient (CLI) | payer OTHER, SELFPAY ==
--- OUTSIDE RECORDS SUMMARY | 2024-06-08 11:25 | XMS_ITS | Data Portability ---
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 Lab urinalysis, dipstick 2020 021 [id number] [place], [address] [place] [address], [address], 15:06:47 pathology study 2020 021 [facility], [address] [place], [address], 11:52:21 pap, LB + reflex HR HPV 2020 021 [facility], [address] [place], [address], 01/22/202 1 10:31:19 Pap test, slide(s), cervical 2021 022 [facility], [address], [address], [place], [address], 2 14:38:09 urinalysis, dipstick, auto 2022 023 [facility] [id number] rtners_dominguez le, [address] [facility], [address], [place], [address], 3 17:31:33 urinalysis, complete 2022 023 [facility], [address], [address], [place], [address], 3 18:15:15 culture, urine 2022 023 [facility], [address], [address], [place], [address], 3 18:15:21 Pap test, slide(s), cervical 2022 023 [facility], [address], [address], [place], [address], 3 18:15:56 Referral None recorded. Procedures None recorded. Surgeries None recorded. Imaging US, transvagina l 2020 021 [email or web address] [facility] [place], [address], [place], [address], 1 14:43:04 US, pelvis 2020 021 ami [facility] [place], [address], [place], [address], 1 15:06:02 US, pelvis, transabdomi nal + transvagina l 2020 021 [email or web address] [place], [address] [place] [address], [address], 13:12:51 DEXA 2021 022 [email or web address] [facility] Radiology Department, [address] [place], [address], 11:10:15 Medication Orders None recorded. Patient TargetsNo targets recorded. Patient Instructions Encounter Date Encounter Id Patient Instructions Last Modified By Organization Details Last Modified Time 12/14/2020 [id number] has colonoscopy 12/29/2020-rev mammogram and calcium labs with primary amies Not available 12/14/2020 19:43:16 08/07/2022 [id number] handling fee* [email or web address] Not available 0 08/07/2022 18:19:08 BD ORDER Not available 2021 08:19:47 colonoscopy mammogram bone density and calcium rev Not available 08/08/2022 08:18:02 11/06/2023 [id number] colonoscopy, mammogram, bone density, dermatology and calcium reviewed Not available 11/06/2023 15:36:20 Reason for Referral None Reported. Results Created Date Observation Date Name Description Value Unit Range Abnormal Flag LastModifiedBy Organization Detail LastModifiedTime 12/14/19 21 12/14/2020 pap, LB + refle x HR HPV case report See note Not Available [facility] [address] [place], [address], 12/16/2020 10:31:18 12/14/19 21 12/14/2020 patho logy study case report See note Not Available [facility] [address] [place], [address], 12/16/2020 11:52:20 12/14/19 21 12/14/2020 urina lysis , dipst ick Unknown Analyte Clean catch Not Available [id number]_g pple [address], [address], 12/09/2020 13:16:45 12/14/19 21 12/14/2020 urina lysis , dipst ick Unknown Analyte Negati ve Not Available [id number]_f [address], [address], 12/09/2020 13:16:45 12/14/19 21 12/14/2020 urina lysis , dipst ick Unknown Analyte Negati ve Not Available [id number]_s [address], [address], 12/09/2020 13:16:45 12/14/19 21 12/14/2020 urina lysis , dipst ick Unknown Analyte Negati ve Not Available [id number]_okars_c [address], [address], 12/09/2020 13:16:45 12/14/19 21 12/14/2020 urina lysis , dipst ick Unknown Analyte 1.010 Not Available Oi591_vxgsb _a [address], [address], 12/09/2020 13:16:45 12/14/19 21 12/14/2020 urina lysis , dipst ick Unknown Analyte negati ve Not Available [id number]_r [address], [address], 12/09/2020 13:16:45 12/14/19 21 12/14/2020 urina lysis , dipst ick Unknown Analyte 6.0 Not Available [id number]_wxkrj _a [address], [address], 12/09/2020 13:16:45 12/14/19 21 12/14/2020 urina lysis , dipst ick Unknown Analyte Negati ve Not Available [id number]_z [address], [address], 12/09/2020 13:16:45 12/14/19 21 12/14/2020 urina lysis , dipst ick Unknown Analyte 0.2 Not Available [id number]_vwtkm _a [address], [address], 12/09/2020 13:16:45 12/14/19 21 12/14/2020 urina lysis , dipst ick Unknown Analyte negati ve Not Available [id number]_y [address], [address], 12/09/2020 13:16:45 12/14/19 21 12/14/2020 urina lysis , dipst ick Unknown Analyte negati ve Not Available [id number]_k [address], [address], 12/09/2020 13:16:45 08/07/20 22 08/07/2022 GYNEC OLOGI C CYTOL OGY (PAP SMEAR ) gynecologic cytology SEE RESULT S BELOW Not Available [address], [place], [address], 08/14/2022 14:38:08 08/07/20 22 08/07/2022 HPV HIGH RISK TYPES DNA CERVI TRACI other HR HPV Negati ve negati ve Not Available [facility] [address], [place], [address], 08/14/2022 14:38:54 08/07/20 22 08/07/2022 HPV HIGH RISK TYPES DNA CERVI TRACI HPV16 DNA Negati ve negati ve Not Available [address], [place], [address], 08/14/2022 14:38:54 08/07/20 22 08/07/2022 HPV HIGH RISK TYPES DNA CERVI TRACI HPV18 DNA Negati ve negati ve Not Available [address], [place], [address], 08/14/2022 14:38:54 08/07/20 22 08/07/2022 HPV HIGH RISK TYPES DNA CERVI TRACI final diagnosis See note below Not Available [address], [place], [address], 08/14/2022 14:38:54 11/06/20 23 11/06/2023 UA WITH MICRO SCOPI C color urine Straw colorl ess, straw, light yellow , yellow Not Available [address], [place], [address], 11/12/2023 18:15:15 11/06/20 23 11/06/2023 UA WITH MICRO SCOPI C appearance urine Clear clear Not Available [address], [place], [address], 11/12/2023 18:15:15 11/06/20 23 11/06/2023 UA WITH MICRO SCOPI C glucose urine Negati ve mg/dL negati ve Not Available [address], [place], [address], 11/12/2023 18:15:15 11/06/20 23 11/06/2023 UA WITH MICRO SCOPI C bilirubin urine Negati ve negati ve Not Available [address], [place], [address], 11/12/2023 18:15:15 11/06/20 23 11/06/2023 UA WITH MICRO SCOPI C ketones urine Negati ve mg/dL negati ve Not Available [address], [place], [address], 11/12/2023 18:15:15 11/06/20 23 11/06/2023 UA WITH MICRO SCOPI C specific gravity urine 1.012 1.003- 1.035 Not Available [address], [place], [address], 11/12/2023 18:15:15 11/06/20 23 11/06/2023 UA WITH MICRO SCOPI C blood urine Negati ve negati ve Not Available [address], [place], [address], 11/12/2023 18:15:15 11/06/20 23 11/06/2023 UA WITH MICRO SCOPI C pH urine 6.5 5.0-7. 0 Not Available [address], [place], [address], 11/12/2023 18:15:15 11/06/20 23 11/06/2023 UA WITH MICRO SCOPI C protein urine Negati ve mg/dL negati ve Not Available [address], [place], [address], 11/12/2023 18:15:15 11/06/20 23 11/06/2023 UA WITH MICRO SCOPI C urobilinogen mg/dL Normal mg/dL normal , 2.0 Not Available [address], [place], [address], 11/12/2023 18:15:15 11/06/20 23 11/06/2023 UA WITH MICRO SCOPI C nitrite urine Negati ve negati ve Not Available [address], [place], [address], 11/12/2023 18:15:15 11/06/20 23 11/06/2023 UA WITH MICRO SCOPI C leukocyte esterase urine Negati ve negati ve Not Available [address], [place], [address], 11/12/2023 18:15:15 11/06/2016 1111/06/2023 UA WITH MICRO SCOPI C RBC urine 2 /hpf <=2 Not Available [address], [place], [address], 11/12/2023 18:15:15 11/06/20 23 11/06/2023 UA WITH MICRO SCOPI C WBC urine 1 /hpf <=5 Not Available [address], [place], [address], 11/12/2023 18:15:15 11/06/20 23 11/06/2023 URINE CULTU RE urine culture SEE RESULT S BELOW Not Available [address], [place], [address], 11/12/2023 18:15:21 11/06/20 23 11/06/2023 HPV HIGH RISK TYPES DNA CERVI TRACI other HR HPV Negati ve negati ve Not Available [address], [place], [address], 11/12/2023 18:15:39 11/06/20 23 11/06/2023 HPV HIGH RISK TYPES DNA CERVI TRACI HPV16 DNA Negati ve negati ve Not Available [address], [place], [address], 11/12/2023 18:15:39 11/06/20 23 11/06/2023 HPV HIGH RISK TYPES DNA CERVI TRACI HPV18 DNA Negati ve negati ve Not Available [address], [place], [address], 11/12/2023 18:15:39 11/06/20 23 11/06/2023 HPV HIGH RISK TYPES DNA CERVI TRACI final diagnosis See note below Not Available [address], [place], [address], 11/12/2023 18:15:39 11/06/20 23 11/06/2023 GYNEC OLOGI C CYTOL OGY (PAP SMEAR ) gynecologic cytology SEE RESULT S BELOW Not Available [address], [place], [address], 11/12/2023 18:15:56 11/06/2011/06/2023 urina lysis , dipst ick, auto Unknown Analyte Clean Catch Not Available [id number] maxine [address], [place], [address], 10/29/2023 16:42:40 11/06/20 23 11/06/2023 urina lysis , dipst ick, auto Unknown Analyte negati ve Not Available [id number]_hiajsix maxine [address], [place], [address], 10/29/2023 16:42:40 11/06/20 23 11/06/2023 urina lysis , dipst ick, auto Unknown Analyte negati ve Not Available [id number]_onucsff maxine [address], [place], [address], 10/29/2023 16:42:40 11/06/20 23 11/06/2023 urina lysis , dipst ick, auto Unknown Analyte negati ve Not Available [id number]_uxmpxkf maxine [address], [place], [address], 10/29/2023 16:42:40 11/06/20 23 11/06/2023 urina lysis , dipst ick, auto Unknown Analyte 1.015 Not Available Nz306_kqzhd pa maxine [address] [place], [address], 10/29/2023 16:42:40 11/06/20 23 11/06/2023 urina lysis , dipst ick, auto Unknown Analyte trace Not Available Hw580_otfsz pa rtshaun [address], [place], [address], 10/29/2023 16:42:40 11/06/20 23 11/06/2023 urina lysis , dipst ick, auto Unknown Analyte 6.5 Not Available [id number]_sjehq pa maxine [address], [place], [address], 10/29/2023 16:42:40 11/06/20 23 11/06/2023 urina lysis , dipst ick, auto Unknown Analyte negati ve Not Available [id number]_zpinjxasimon goodman [address], [place], [address], 10/29/2023 16:42:40 11/06/20 23 11/06/2023 urina lysis , dipst ick, auto Unknown Analyte 0.2 Not Available [id number]_smqyvobi goodman [address], [place], [address], 10/29/2023 16:42:40 11/06/20 23 11/06/2023 urina lysis , dipst ick, auto Unknown Analyte negati ve Not Available [id number] goodman [address], [place], [address], 10/29/2023 16:42:40 11/06/20 23 11/06/2023 urina lysis , dipst ick, auto Unknown Analyte negati ve Not Available Tay goodman [address], [place], [address], 10/29/2023 16:42:40 11/06/20 23 11/06/2023 urina lysis , dipst ick, auto Unknown Analyte yellow Not Available [id number]_wznsb pa rtflorentino_dominguez le [address] [facility] [address], [place], [address], 10/29/2023 16:42:40 11/06/20 23 11/06/2023 urina lysis , dipst ick, auto Unknown Analyte slight ly cloudy Not Available [id number]_uyvtugx rtners_dominguez le [address] [facility] [address], [place], [address], 10/29/2023 16:42:40 12/14/19 21 US, trans vagin al No observ ation record ed. [email or web address] Katie [address], [place], [address], 12/14/2020 15:09:59 12/20/19 22 12/18/2021 MAMMO , scree devon, bilat eral No observ ation record ed. [address] Radiology Department [address] [place], [address], 12/20/2021 16:49:21 09/21/20 22 09/19/2022 DEXA No observ ation record ed. [facility] Radiology Department [address] [place], [address], 09/28/2022 11:51:07 03/07/20 23 03/05/2023 MAMMO , scree devon, bilat eral No observ ation record ed. [address] Radiology [address] [place], [address], 03/07/2023 10:09:39 Result Notes None recorded. Problems Name Status Onset Date Resolution Date Notes Provider Name and Address Organization Details Recorded Time Hyperlipidemia Active Court FATOUMATA Falcon NATUROPATHIC DOCTOR 11/06/2023 14:19:56 Disorder of thyroid gland Active FATOUMATA Ng NATUROPATHIC DOCTOR 11/06/2023 14:20:12 Anxiety Active FATOUMATA Ngier NATUROPATHIC DOCTOR 11/06/2023 14:20:21 Problem Notes None recorded. Procedures Surgical History Date Name Laterality Status Provider Name and Address Organization Details Recorded Time 3 Date of Last Mammogram completed Mayelin Dean (TERMED) null, [place] - [facility] 03/07/2023 10:09:48 2 Date of Last Pap Smear completed Taisha Alexis null, [place] - [facility] 10/29/2023 16:40:25 1 Date of Last Colonoscopy completed Nelson Travis-Myhr e (TERMED) null, [facility] 12/14/2020 12:51:07 1 Cervical Polypectomy/Bio psy Procedure Note ([facility]) completed Nelson [facility]Myhr e [facility] 12/14/2020 13:50:40 Imaging Results Imaging Date Name Status LastModified by Organization Details LastModified Time 12/14/2020 US, transvaginal completed [email or web address] Katie [address], [place], [address], 12/14/2020 15:09:59 12/18/2021 MAMMO, screening, bilateral completed [address] Radiology Department [address] [place], [address], 12/20/2021 16:49:21 09/19/2022 DEXA completed [facility] Radiology Department [address] [place], [address], 09/28/2022 11:51:07 03/05/2023 MAMMO, screening, bilateral completed [address] Radiology [address] [place], [address], 03/07/2023 10:09:39 Procedure Notes None recorded. Medical Equipment None Reported. Allergies Allergen ID Allergen Name Allergen Category Reaction Reaction Severity Criticality Documentation Date Start Date Code Code System Note Provider Name and Address Organization Details Recorded Time 22596 Medicinal product containin g penicilli n and acting as antibacte rial agent (product) medicatio n Not available Not available Not available 06/30/2020 55176 05 SNOMED *Note : rash Not Available [facility] 0 05:13:18 Medications Name Sig Start Date Stop Date Status Note LastModified by Organization Details LastModified Time levothyroxin e 75 mcg tablet TAKE 1 TABLET BY MOUTH EVERY DAY active Not Available Not Available No t Available Synthroid 175 mcg tablet Take 1 tablet every day by oral route. 08/07 completed Not Available Not Available Not Available alprazolam 0.5 mg tablet TAKE 0.5-1 TABLETS (0.25-0. 5 MG) BY MOUTH 2 TIMES DAILY IF NEEDED FOR ANXIETY active Not Available Not Available No t Available simvastatin 20 mg tablet TAKE 1 TABLET BY MOUTH AT BEDTIME active Not Available Not Available No t Available fluoxetine 20 mg capsule TAKE 1 CAPSULE BY MOUTH EVERY DAY active Not Available Not Available No t Available oxycodone 5 mg tablet TAKE 1 TABLET (5 MG) BY MOUTH EVERY 4 HOURS IF NEEDED FOR PAIN. 11/06 completed Not Available Not Available Not Available simvastatin 08/07 completed Not Available Not Available Not Available Xanax 11/06 completed Not Available Not Available Not Available Vitals Date Recorded Body weight Heart rate Body mass index (BMI) Body height Systolic blood pressure Diastolic blood pressure Provider Name and Address Organization Details Last Updated DateTime 2 79172.8 5 g 58 /min 30.4 kg/m2 162.56 cm 159 mm[Hg] 91 mm[Hg] Keyonna Darden (TERMED) [facility]UROPATH[facility] DOCTOR 2 13:34:34 Date Recorded Body height Provider Name an d Address Organization Details Last Updated DateTime 11/06/2023 162.56 cm Taisha Vanesa [facility] 11/06/2023 14:20:43 Date Recorded Body weight Body mass index (BMI) Body height Systolic blood pressure Diastolic blood pressure Provider Name and Address Organization Details Last Updated DateTime 12/14/2020 46445.63 g 30.9 kg/m2 162.56 cm 160 mm[Hg] 90 mm[Hg] Nelson hagan (TERMED) [facility]UROPATH[facility] DOCTOR 1 12:59:22 Social History Question Answer Notes LastModified by Organizat ion Details LastModified Time Tobacco Smoking Status Former Smoker Tobacco *Status: Former Not Available [facility] 09/27/2020 03:59:31 Do You Have An Advance Directive? No [email or web address] Information not available 08/07/2022 What Is Your Level Of Alcohol Consumption? Occasional [email or web address] Information not available 08/07/2022 How Many Times Per Week Do You Consume Alcohol? 1-2 Times Per Week [email or web address] Information not available 08/07/2022 Is Blood Transfusion Acceptable In An Emergency? Yes Information not available 08/07/2022 What Is Your Level Of Caffeine Consumption? Moderate Caffeine *Status: Current Every Day *Qty: 2 Cups Daily [id number] Information not available 09/27/2020 Are You Currently Employed? Yes Information not available 08/07/2022 What Type Of Diet Are You Following? REGULAR [email or web address] Information not available 08/07/2022 What Is The Highest Grade Or Level Of School You Have Completed Or The Highest Degree You Have Received? [id number] [email or web address] Information not available 08/07/2022 How Many Times Per Week Do You Exercise? 5-7 Times Per Week [email or web address] Information not available 08/07/2022 History Of Domestic Violence No Denies Any History Of Domestic Violence Information not available 07/04/2020 Marital Status Informati on not available 07/04/2020 What Was The Date Of Your Most Recent Tobacco Screening? 08/07/2022 [email or web address] Information not available 08/07/2022 What Is Your Relationship Status? [email or web address] Information not available 08/07/2022 Are You Sexually Active? Yes Sexually Active [id number] Information not available 09/27/2020 Do You Use Any Illicit Or Recreational Drugs? No [email or web address] Information not available 08/07/2022 Has Tobacco Cessation Counseling Been Provided? No [email or web address] Information not available 08/07/2022 Are You Currently In School? No [email or web address] Information not available 08/07/2022 Sex: Unknown Functional Status Question Answer Note LastModified by Organizat ion Details LastModified Time What is your exercise level? Moderate Exercises on a regular basis *Note: 2-5 HOURS WEEKLY [id number] Information not available 09/27/2020 Mental Status None recorded. Family History Relationship Description Onset Age of this Age Resolved Age Notes Father Family history: neoplasm - trachea/bronchus/duglas g Family History o f Cancer; Lung Mother Family history of Cardiovascular disease Family History o f Hypertension Mother Family history of endocrine disorders Family Histo ry of Hyperlipidemia Mother Heart disease Heart Disease Sister Family history of mental disorder Family History o f Anxiety Sister Family history of Anemia Family History o f Anemia Mother Diabetes mellitus Notes:Family History of Thyr oid Disorder ICD-9 V18.19 Family History of Diabetes: Nephew, Type I ICD-9 V18.0 Medical History Condition Response Psych- Anxiety Disorder Y Endocrinology- Hypothyroidism Gynecological History Statement/Question Response History of Vulvar Dysplasia N HPV Test Negative Date of Last Mammogram 03/05/2023 Date of LMP History of Cervical Dysplasia N Age at Menopause 44 Menstrual Cycle Length (days) 6 Sexual Orientation Heterosexual Date of Last Diabetes Screening History of Infertility N Sexually Active Y Date of Last Colonoscopy 12/29/2020 Diethylstilbestrol (INNA) exp osed daughters of women who took INNA during ? N History of Gestational Diabetes N History of PCOS N History of Endometriosis N History of Abnormal PAP N History of Recurrent Ovarian Cysts Y Date of last bone density 09/19/2022 Date of Last Pelvic Ultrasound Age at Menarche: 12 History of Sexually Transmitted Infectio n N Current Control Method Vasectomy History of Fibroids N Urinary Incontinence Symptoms N Date of Last Pap Smear 08/07/2022 Date of Last Cholesterol Screening Obstetrics History GPAL:G 0 P 0 0 0 0 Immunizations Vaccine Type Date Status Provider Name and Address Organization Details Recorded Time COVID-19, mRNA, LNP-S, PF, 30 mcg/0.3 mL dose 12/06/2020 completed Taisha garcia, [facility] DO[facility] 10/29/2023 16:40:07 COVID-19, mRNA, LNP-S, PF, 30 mcg/0.3 mL dose 08/23/2021 completed Taisha garcia, [facility] 10/29/2023 16:40:08 COVID-19, mRNA, LNP-S, PF, 30 mcg/0.3 mL dose 11/16/2020 completed Taisha garcia, [facility] 10/29/2023 16:40:08 COVID-19, mRNA, LNP-S, PF, 30 mcg/0.3 mL dose, chelita-sucrose 03/20/2022 completed [place] Ng - NATUROPATHIC DOCTOR 10/29/2023 16:40:08 Past Encounters Encounter ID Performer Location Encounter Start Date Encounter Closed Date Diagnosis/Indication Diagnosis SNOMED-CT Code [id number] BEENA HERNANDEZ MD [id number] [address] [address] 12/14/2020 12:44:52 12/15/2020 10:54:36 Gynecologic examination 98018980 Screening for malignant neoplasm of cervix 732154405 Polyp of cervix 29868666 Paraovarian cyst 7990456 07 [id number] BEENA HERNANDEZ MD [id number] [facility] [address] [place] [address] 12/14/2020 14:40:22 12/14/2020 14:43:03 Paraovarian cyst 474442948 [id number] Beena Hernandez [id number] [address] 08/07/2022 12:52:39 08/08/2022 10:06:25 Screening for osteoporosis 049702749 Screening for malignant neoplasm of cervix 900381243 Hip pain 10437681 Vulvitis 74576822 [id number] Beena Hernandez MD [id number] [address] [address] 11/06/2023 14:02:09 11/07/2023 14:57:20 Gynecologic examination 59074946 Screening for malignant neoplasm of cervix 785342399 Blood in urine 07048609 Vulvitis 37048040 Health Concerns Section Related Observation LastModified by Organization Helen balderas LastModified Time None Recorded Concern Status LastModified by Organization Details LastModified Time None Recorded Advance Directives Directive N: Payers Encounter Date Sequence Insurance Name Policy Number Policy Joseph Covered Member ID Joseph Member ID Guarantor Name 12/14/2020 1 *SELF PAY* Jennie Shea 12/14/2020 1 *SELF PAY* Jennie Morrell Monse 08/07/2022 1 [employer] Taylor Morrell Monse [id number] Taylor Morrell Monse 11/06/2023 1 [employer] Taylor Morrell Monse [id number] Taylor Shea Notes Date Note Type Note Provider Name and Address Organization Details Recorded Time 12/14/2020 text/html HPI Notes: Suresh iqbal is a sexually active menopausal female. She denies experiencing post-menopausal bleeding. She denies any concerning menopausal symptoms. Last pap smear was 11/22/19. I reviewed with the patient today ASCCP guidelines for recommended frequency of pap smear testing. Discussed that typically we discontinue cervical cancer screening at age 65 unless she has a concerning history. She declines STD testing today. She denies pain with intercourse. She is due with colonoscopy. She is due with mammography. We reviewed the importance of osteoporosis prevention. Calcium and vitamin D supplementation, along with weight-bearing exercise, discussed today. Today, patient has ____ complaints that she wants to address. Past medical and surgical history were reviewed again today. Medication and allergy list made current. She reports feeling safe in her relationships. She denies history of abuse. She endorses history [place] [id number] [facility],[address], [place], [address], [facility] 12/14/2020 20:42:42 08/07/2022 text/html HPI Notes: Suresh iqbal is a sexually active menopausal female. She denies experiencing post-menopausal bleeding. She denies any concerning menopausal symptoms. Last pap smear was [id number]. I reviewed with the patient today ASCCP guidelines for recommended frequency of pap smear testing. Discussed that typically we discontinue cervical cancer screening at age 65 unless she has a concerning history. She declines STD testing today. She denies pain with intercourse. She is up-to-date with colonoscopy. She is up-to-date with mammography. We reviewed the importance of osteoporosis prevention. Calcium and vitamin D supplementation, along with weight-bearing exercise, discussed today. Today, patient has ____ complaints that she wants to address. Past medical and surgical history were reviewed again today. Medication and allergy list made current. She reports feeling safe in her relationships. She denies history of abuse. She endorses [place] [address] [facility],[address], [place], [address], [facility] NATUROPATHIC DOCTOR 08/08/2022 08:20:07 11/06/2023 text/html HPI Notes: Suresh iqbal is a sexually active menopausal female. She denies experiencing post-menopausal bleeding. She denies any concerning menopausal symptoms. Last pap smear was [id number]. I reviewed with the patient today ASCCP guidelines for recommended frequency of pap smear testing. Discussed that typically we discontinue cervical cancer screening at age 65 unless she has a concerning history. She declines STD testing today. She denies pain with intercourse. She is up-to-date with colonoscopy. She is up-to-date with mammography. We reviewed the importance of osteoporosis prevention. Calcium and vitamin D supplementation, along with weight-bearing exercise, discussed today. Today, patient has no complaints that she wants to address. Past medical and surgical history were reviewed again today. Medication and allergy list made current. She reports feeling safe in her relationships. She denies history of abuse. She endorses [place] [address], [place], [address], [facility] [place] NATUROPATHIC DOCTOR 11/06/2023 15:37:02 OBGyn Episode No OBEpisode recorded.
--- OUTSIDE RECORDS SUMMARY | 2024-06-08 11:25 | XMS_ITS | Clinical Summary ---
Author Organization [facility] Address [place], [place] [address] Care Team Providers Care Custodial Supervisor Name Role Phone Omero Sharpe Primary Care Provider +[phone] Allergies Active Allergy Reactions Criticality Noted Date Comments Penicillins Rash 02/09/2015 Medications Medication Sig Dispensed Refills Start Date End Date Status multivitamin (MVI) tablet Take 1 tablet by mouth once daily. 0 02/09/2015 Active cholecalciferol (VITAMIN D) 1,000 unit capsule Take 1 capsule by mouth once daily. 0 08/05/2015 Active calcium carbonate (TUMS) 200 mg calcium (500 mg) chewable tablet Take 1 tablet by mouth once daily. 0 12/15/2020 Active ALPRAZolam (XANAX) 0.5 mg tabletIndications:Fear of flying Take 0.5-1 Tablets (0.25-0.5 mg) by mouth 2 times daily if needed for anxiety 20 Tablet 1 08/06/2023 Active FLUoxetine (PROZAC) 20 mg capsuleIndications:Anx iety Take 1 Capsule (20 mg) by mouth once daily. 90 Capsule 3 08/06/2023 Active levothyroxine (SYNTHROID) 75 mcg tabletIndications:Othe r specified hypothyroidism Take 1 Tablet (75 mcg) by mouth once daily. 90 Tablet 3 08/06/2023 Active simvastatin (ZOCOR) 20 mg tabletIndications:Hype rlipidemia, unspecified hyperlipidemia type Take 1 Tablet (20 mg) by mouth at bedtime. 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 Hypothyroidism 11/25/2014 Immunizations Name Administration Dates Next Due AMB INFLUENZA, IIV4 (AGE=>6M OS) MDV (Flu Clinic Only) 09/13/2020 COVID-19 vaccine ([employer] NTech 30mcg/0.3mL) PF, MDV 12/06/2020,11/16/2020 Influenza A (H1N1), Inactivated 10/26/2009 Influenza Virus, Unspecified 09/04/2010,08/22/20 09 Influenza, IIV3 (Age 6-35 mos) 08/31/2020 Influenza, IIV3 (Age >=3 years) 12/08/19 15,08/31/2014,08/28/2013,2009,08/22/2009 Influenza, IIV4 08/22/2022, 7,08/14/2016,2014,08/31/2014 Influenza, IIV4 (=>6mos) MDV 08/23/2021 Influenza, IIV4 (Age 6-35 Mos) 08/28/2013 MMR 01/16/2016 Tdap 04/27/2016 Family History Medical History Relation Name Comments Cancer Father lung Heart Disease Maternal Aunt 1 Cancer-colon Maternal Aunt 2 Cancer Maternal Grandfather bladder Heart Disease Maternal Grandfather Heart Disease Maternal Grandmother Heart Disease Maternal Uncle 1 Heart attack Maternal Uncle 2 triple bypa ss Diabetes Mother Thyroid Disease Mother Cancer Other 1 COUSIN lung to brain Suicidality Other 2 x 2 cousins both in their 5 0s Cancer-prostate Paternal Grandfather Cerebral aneurysm Paternal Grandmother [...] Packs/Day Years Used Date Smoking Tobacco: Former Cigarettes Q uit: 11/25/1995 Smokeless Tobacco: Never Tobacco Cessation:Counseling Given: Yes Alcohol Use Standard Drinks/Week Comments Yes 4 (1 standard drink = 0.6 oz pur e alcohol) PHQ-2 Answer Date Recorded PHQ-2 TOTAL SCORE 0 08/06/2023 Social Connections Answer Date Recorded Frequency of Communication with Friends and Fami ly Not on file 12/10/2023 Financial Resource Strain Answer Date R ecorded Difficulty of Paying Living Expenses 3 12/04/2022 Difficulty of Paying Living Expenses Not on file 12/04/2022 Food Insecurity Answer Date Recorded Worried About Running Out of Food in the Last Ye ar 1 12/04/2022 Transportation Needs Answer Date Record ed Lack of Transportation (Medical) 1 12/04/2022 Housing Stability Answer Date Recorded Unable to Pay for Housing in the Last Year 1 12/04/2022 Sex and Gender Information Value Date Recorded Sex Assigned at Not on file Gender Identity Not on file Sexual Orientation Not on file Obstetrics History Last Filed Vital Signs Vital Sign Reading Time Taken Comments Blood Pressure 120/70 08/06/2023 9:58 AM CDT Pulse 62 03/04/2023 3:45 PM CDT Temperature 37.1 ??C (98.7 ??F) 05/07/2017 9:41 AM CD T Respiratory Rate - - Oxygen Saturation 99% 03/04/2023 3:45 PM CDT Inhaled Oxygen Concentration - - Weight 79.8 kg (176 lb) 08/06/2023 9:58 AM CDT Height 163.8 cm (5' 4.5) 08/06/2023 9:58 AM CDT Body Mass Index 29.74 08/06/2023 9:58 AM CDT Plan of Treatment Health Maintenance Due Date Last Done Comments HIV for age 15-65 1985 Hepatitis C screening for age 18-79 1988 Zoster (shingles) series for age 50+ (1 of 2) 2020 Mammogram for age 45-75 02/24/2024 02/24/20 23 (Completed outside of [facility]), 11/28/2021 (Completed outside of [facility]), 10/25/2019 (Completed outside of [facility]), Additional history exists Influenza for age 50-64 07/26/2024 08/22/20 22, 08/23/2021, 09/13/2020, Additional history exists BMI (ht and wt on same day) for age 18+ 08/06/2024 08/06/2023, 08/02/2022, 07/12/2021, Additional history exists Depression screening for age 12+ 08/06/2024 08/06/2023, 08/03/2022, 08/02/2022, Additional history exists Pap test for age 21-65 08/02/2025 2 (Completed outside of [facility]), 08/25/2019 (Completed outside of [facility]), 03/25/2016, Additional history exists Tetanus booster 04/27/2026 04/27/2016 Lipids for age 45-75 08/06/2028 08/06/2023, 08/02/2022, 07/12/2021, Additional history exists Colonoscopy through age 75 12/29/2030 12/29/2020 Tdap Completed 04/27/2016 COVID-19 vaccine series Completed 09/07/20 23, 09/27/2022, 03/20/2022, Additional history exists Pneumococcal series for age 6-64 Aged Out No longer eligible based on patient's age to complete this topic Procedures Procedure Name Priority Date/Time Associated Diagnosis Comments LIPID PANEL Routine 08/06/2023 10:36 AM CDT Hyperlipidemia, unspecified hyperlipidemia type SCAN-COLONOSCOPY 12/29/2020 11:3 0 AM MEAT SLICER XR MAMMO UNI DIAG FFDM LEFT (IA) Timed 12/19/2006 10:35 AM MEAT SLICER from Last 3 Months or Most Recently Relevant to Health Maintenance Results * LIPID PANEL (08/06/2023 10:36 AM CDT) CHOLESTEROL,TOTAL 179 100 - 199 mg/dL 08/06/2023 11:32 PM CDT [facility] Comment: Cholesterol, Total Reference Ranges Desirable <200 mg/dL Borderline 200-239 mg/dL High >=240 mg/dL TRIGLYCERIDES 94 <150 mg/dL 08/06/2023 11:32 PM CDT [facility] HDL CHOLESTEROL 56 >40 mg/dL 11:32 PM CDT [facility] NON-HDL CHOLESTEROL 123 <145 mg/dl 08/06/2023 11:32 PM CDT [facility] CHOL/HDL RATIO 3.20 <4.50 08/06/2023 11:32 PM CDT [facility] LDL CHOLESTEROL 104 <=130 mg/dL 08/06/2023 11:32 PM CDT [facility] VLDL CHOLESTEROL 19 <=30 mg/dL 08/06/2023 11:32 PM CDT [facility] PROVIDER ORDERED STATUS FASTING 08/06/2023 11:32 PM CDT [facility] Blood BLOOD SPECIMEN / Unknown Venipuncture / Unknown 08/06/2023 10:36 AM CDT 08/06/2023 10:36 AM CDT Omer[facility] RAYO CHEMISTRY [facility] [address] [place] [id number], * SCAN-COLONOSCOPY (12/29/2020 11:30 AM MEAT SLICER) Narrative Procedure Note Juan Roy MD - 12/29/2020 10:33 AM CST [facility] [address] [facility] [facility], [address], [place] [address] Patient Name: Taylor Shea Gender: Female Exam Date: 12/29/2020 Visit Number: [id number] Age: 50 Years 2 Months Date of : 1970 Attending MD: Brian Roy MD Medical Record#: [id number] ----- Procedure: Colonoscopy Indications: Colorectal cancer screening Referring MD: Omero BUTLER Primary MD: Omero BUTLER Medications: Admitting Medications: 0.9% Normal Saline at TKO Intra Procedure Medications: Patient received monitored anesthesia care. Complications: No immediate complications Procedure: An examination of the heart and lungs was performed and found to be withinacceptable limits. The patient was therefore deemed a reasonablecandidate for endoscopy and monitored anesthesia care. The risks and benefits of the procedure were explained to the patient.After obtaining informed consent, the patient received monitoredanesthesia care and I passed the scope without difficulty via the rectum to the ileum. The appendiceal orificeand ic valve were identified. The scope was retroflexed during theexamination The quality of the prep was excellent (Miralax/Gatorade/2tablets Bisacodyl/Magnesium Citrate). This was a complete examination throughout the entire colon. Findings: Diverticulosis. Location: - sigmoid. Impression: Diverticulosis of colon without diverticulitis Plan Repeat colonoscopy in 10 years. If you have signs or symptoms of lower GI illness or a new diagnosis ofcolon cancer in an immediate family member, you should contact your GIprovider or your primary provider to discuss whether your next examshould be repeated sooner. We will attempt to contact you at appropriate intervals via U.S. mail. Wemay not be able to find you or contact you at that time, therefore youshould know that the responsibility for following our recommendation restswith you. If you don't hear from us at the time your procedure is due,please contact our office to schedule an appointment. If your contactinformation should change, please contact our office so that we can updateyour records. Recommendation Comments: High fiber diet. Electronically signed by: Brian Roy MD 12/29/2020 Medications: Medication Dose Sig Description PRN Status PRN Reason Comments alprazolam 0.5 mg tablet 0.5 mg take 1 tablet by oral route every day asneeded N taking as directed fluoxetine 20 mg capsule 20 mg take 1 capsule by oral route every day inthe morning N taking as directed levothyroxine 75 mcg capsule 75 mcg take 1 capsule by oral route everyday N taking as directed simvastatin 20 mg tablet 20 mg take 1 tablet by oral route every day inthe evening N taking as directed Tums 200 mg calcium (500 mg) chewable tablet 200 mg calcium (500 mg) take1 Tablet by Oral route as needed N taking as directed Vitamin D3 25 mcg (1,000 unit) capsule 25 mcg (1,000 unit) take 1 by Oralroute every day N taking as directed Womens Daily Gummies 200 mcg chewable tablet 200 mcg N taking asdirected Allergies: Medication Name Ingredient Reaction Comment PENICILLIN Vital Signs: Date Time Systolic Diastolic Height Weight BMI 12/29/2020 1049 AM 151 92 64 in 176.00 30.20 Race: Ethnicity: Not or Preferred Language: Guyanese cc: Omero BUTLER cc: Omero BUTLER [facility] [phone] Juan Roy MD OTHER * BC DX FFD UNI LANRE (12/19/2006 10:35 AM MEAT SLICER) Anatomical Region Laterality Modality BREASTS, Breast Left Left Mammography 12/19/2006 10:1 5 AM MEAT SLICER Narrative 12/19/2006 10:49 AM MEAT SLICER 12/19/06 RIGHT BREAST FULL-FIELD DIAGNOSTIC DIGITAL MAMMOGRAPHY WITH COMPUTER-AIDED DETECTION: INDICATION: ??RIGHT BREAST DENSITY 12/16/06 SCREENING MAMMOGRAM. COMPARISON: ??12/16/06 TECHNIQUE: ??FULL-FIELD DIGITAL MAMMOGRAPHY WITH COMPUTER-AIDED DETECTION. FINDINGS: ??SMALL DENSITY PRESENT ON THE RIGHT CC VIEW ONLY 12/16/06 DOES NOT PERSIST WITH SPOT COMPRESSION. ASSESSMENT: ??ACR CATEGORY 1, NEGATIVE. Chandrakant oMntiel MD MAMMO from Last 3 Months or Most Recently Relevant to Health Maintenance Care Teams Custodial Supervisor Relationship Specialty [place] [address] [place] [address] PCP - General Family Practice 05/05/18
--- OUTSIDE RECORDS SUMMARY | 2024-06-08 11:25 | XMS_ITS | Clinical Summary ---
Author Organization [facility] [employer] Address [address], [place] [address] Care Team Providers Care Packing Attendant Name Role Phone Chandrakant Montiel MD Primary Care Provider + [phone] Source Comments You are receiving this document as you are listed as the primary care provider,follow-up provider, or the patient has been referred to you for consultation.This is in compliance with the Medicare andMedicaid EHR Incentive Program,which states Providers who transition their patient to another setting of careor provider of care or refers their patient to another provider of care shouldprovide summary care record for each transition of care or referral. [employer] Allergies Active Allergy Reactions Criticality Noted Date Comments Penicillins Rash 09/22/2014 Medications Medication Sig Dispensed Refills Start Date End Date Status FLUoxetine (AKA PROZAC) 20 MG capsule Take 20 mg by mouth daily (every 24 hours). 09/22/2014 Active levothyroxine (SYNTHROID) 75 MCG tablet Take 75 mcg by mouth daily. Active ALPRAZolam (XANAX) 0.25 MG tablet Take 0.5 mg by mouth at bedtime as needed. Active simvastatin (ZOCOR) 20 MG tablet Take 1 Tablet (20 mg) by mouth daily at bedtime. 07/08/2023 Active Immunizations Name Administration Dates Next Due Flu Vac Preserv Free (3+yrs) 09/04/2010,08/22/20 09 H1n1 Miv San[employer]i 3+ Yr (Injected) 10/26/2009 Influenza IIV4 (Quadrivalent) 0.5mL (95175) 07/27,08/31/2014,08/28/2013 Social History Tobacco Use Types Packs/Day Years Used Date Smoking Tobacco: Former Smokeless Tobacco: Never Sex and Gender Information Value Date Recorded Sex Assigned at Not on file Gender Identity Not on file Sexual Orientation Not on file Plan of Treatment Health Maintenance Due Date Last Done Comments Cervical Cancer Screening Due 1970 Colon Cancer Screening Plan Due 1970 Hep C Screening (Preventive Services) 1970 Mammogram 1970 HIV Screening (Preventive Services) 1986 Adult Preventive Visit 1988 HepB (1) 1989 Cholesterol 2015 Zoster/Shingles (1 of 2) 2020 COVID-19 Vaccine ( season) 2023 09/27/2022, 03/20/2022, 08/23/2021, Additional history exists Influenza (#1) 2024 08/22/2022, 07/27, 09/13/2020, Additional history exists DTaP/Tdap/Td (2 - Tdap) 04/27/2026 04/27/2016 HepA Aged Out No longer eligi ble based on patient's age to complete this topic Hib Aged Out No longer eligi ble based on patient's age to complete this topic IPV (Polio) Aged Out No longer eligi ble based on patient's age to complete this topic MCV4 Aged Out No longer eligi ble based on patient's age to complete this topic Pneumococcal Aged Out No longer eligi ble based on patient's age to complete this topic Care Teams Packing Attendant Relationship Specialty Start Date End Date Chandrakant Montiel MD [address] [address] PCP - General 09/22/14
--- NOTE | 2024-06-08 11:30 | CRLHL7_ITS ---
For Patients: As a result of the Century Cures Act, medical imaging exams and procedure reports are released immediately into your electronic medical record. You may view this report before your referring provider. If you have questions, please contact your health care provider. BILATERAL DIGITAL SCREENING MAMMOGRAM WITH COMPUTER-AIDED DETECTION AND TOMOSYNTHESIS CLINICAL HISTORY: Routine screening exam. COMPARISON: 03/05/2023, 12/18/2021, 12/05/2020. TECHNIQUE: Digital mammogram in CC and MLO projections including computer-aided detection (CAD). Tomosynthesis was used in this interpretation. BREAST COMPOSITION: There are areas of scattered fibroglandular density. FINDINGS: RIGHT Breast: No suspicious findings. LEFT Breast: Focal asymmetric density within the lower inner quadrant 8 cm from the nipple. IMPRESSION: LEFT breast asymmetry/mass. RECOMMENDATIONS: Additional mammographic views of the LEFT breast including 3D spot compression CC/MLO. LEFT breast ultrasound may also be required. BI-RADS Category 0: Incomplete: Need Additional Imaging Evaluation and/or Prior Mammograms for Comparison The [facility] will contact the patient for follow-up. A lay language report of this examination will be provided to the patient. Dictated by Celso Howard MD @ 06/08/2024 12:44:39 PM jj/Dictated by: Celso Howard MD @ 06/08/2024 12:44:00 PM (Electronically Signed)
== END 2024-06-08 11:22 | disposition home or self-care (01) ==
PROVIDERS: Visit Provider Obstetrics & Gynecology
DX: Z12.31 Encounter for screening mammogram for malignant neoplasm of breast (principal); N63.20 Unspecified lump in the left breast, unspecified quadrant
CPT/HCPCS: 77063; 77067

== ENCOUNTER 2024-06-15 07:34 | Outpatient (CLI) | payer OTHER, SELFPAY ==
--- OUTSIDE RECORDS SUMMARY | 2024-06-15 07:37 | XMS_ITS | Clinical Summary ---
Author Organization [facility] Address [address] [address] Care Team Providers Care Digital Marketing Specialist Name Role Phone Chandrakant Montiel MD Primary Care Provider + [phone] Source Comments You are receiving this document [...] for each transition of care or referral. Downstream Allergies Active Allergy Reactions Criticality Noted Date [...] Yr (Injected) 10/26/2009 Influenza IIV4 (Quadrivalent) 0.5mL (99718) 07/27,08/31/2014,08/28/2013 Social History Tobacco Use Types Packs/Day [...] age to complete this topic Care Teams Digital Marketing Specialist Relationship Specialty Start Date End Date Chandrakant Montiel MD [address] [address] PCP - General 09/22/14
--- OUTSIDE RECORDS SUMMARY | 2024-06-15 07:37 | XMS_ITS | Clinical Summary ---
Author Organization [facility] Address [place], [place] [address] Care Team Providers Care Marketing Copywriter Name Role Phone Omero Sharpe Primary Care Provider [phone] Allergies Active Allergy Reactions Criticality Noted Date [...] flying 05/07/2017 Hypothyroidism 11/25/2014 Encounters Date Type Department Care Team Description 06/08/2024 Telephone [facility] [address] [place] [address] Omero Sharpe PA Form (order for screening) from Last 3 Months Immunizations Name Administration Dates Next Due AMB INFLUENZA, IIV4 (AGE=>6M OS) MDV (Flu Clinic Only) 09/13/2020 COVID-19 vaccine ([employer] 30mcg/0.3mL) PF, MDV 12/06/2020,11/16/2020 Influenza A [...] 45-75 02/24/2024 02/24/20 23 (Completed outside of [facility]), 11/28/2021 (Completed outside of [facility]), 10/25/2019 (Completed outside of [facility]), Additional history exists Influenza for age 50-64 07/26/2024 08/22/20 22, 08/23/2021, 09/13/2020, Additional history exists BMI (ht and wt on same day) for age 18+ 08/06/2024 08/06/2023, 08/02/2022, 07/12/2021, Additional history exists Depression screening for age 12+ 08/06/2024 08/06/2023, 08/03/2022, 08/02/2022, Additional history exists Pap test for age 21-65 08/02/2025 2 (Completed outside of [facility]), 08/25/2019 (Completed outside of [facility]), 03/25/2016, Additional history exists Tetanus booster 04/27/2026 [...] hyperlipidemia type SCAN-COLONOSCOPY 12/29/2020 11:3 0 AM ASSISTANT MANAGER TRAINEE XR MAMMO UNI DIAG FFDM LEFT (IA) Timed 12/19/2006 10:35 AM ASSISTANT MANAGER TRAINEE from Last 3 Months or Most Recently Relevant to Health Maintenance Results * LIPID PANEL (08/06/2023 10:36 AM CDT) CHOLESTEROL,TOTAL 179 100 - 199 mg/dL 08/06/2023 11:32 PM CDT [facility] Comment: Cholesterol, Total Reference Ranges Desirable <200 mg/dL Borderline 200-239 mg/dL High >=240 mg/dL TRIGLYCERIDES 94 <150 mg/dL 08/06/2023 11:32 PM CDT [facility] HDL CHOLESTEROL 56 >40 mg/dL 11:32 PM CDT [facility] NON-HDL CHOLESTEROL 123 <145 mg/dl 08/06/2023 11:32 PM CDT [facility] CHOL/HDL RATIO 3.20 <4.50 08/06/2023 11:32 PM CDT [facility] LDL CHOLESTEROL 104 <=130 mg/dL 08/06/2023 11:32 PM CDT [facility] VLDL CHOLESTEROL 19 <=30 mg/dL 08/06/2023 11:32 PM CDT [facility] PROVIDER ORDERED STATUS FASTING 08/06/2023 11:32 PM CDT [facility] Blood BLOOD SPECIMEN / Unknown Venipuncture / Unknown 08/06/2023 10:36 AM CDT 08/06/2023 10:36 AM CDT [facility] RAYO CHEMISTRY [facility] [address] [place] [address], * SCAN-COLONOSCOPY (12/29/2020 11:30 AM ASSISTANT MANAGER TRAINEE) Narrative Procedure Note Juan Roy MD - 12/29/2020 10:33 AM CST [facility] [address], [address], [place] [address] Patient Name: Taylor Shea Gender: Female Exam Date: 12/29/2020 Visit Number: [id number] Age: 50 Years 2 Months Date of : 1970 Attending MD: Brian Roy MD Medical Record#: [id number] ----- Procedure: Colonoscopy Indications: Colorectal cancer screening [...] 30.20 Race: Ethnicity: Not or Preferred Language: Solomon Islander cc: Omero BUTLER cc: Omero BUTLER [facility] [phone] Juan Roy MD OTHER * BC DX FFD UNI LANRE (12/19/2006 10:35 AM ASSISTANT MANAGER TRAINEE) Anatomical Region Laterality Modality BREASTS, Breast Left Left Mammography 12/19/2006 10:1 5 AM ASSISTANT MANAGER TRAINEE Narrative 12/19/2006 10:49 AM ASSISTANT MANAGER TRAINEE 12/19/06 RIGHT BREAST FULL-FIELD DIAGNOSTIC DIGITAL MAMMOGRAPHY WITH COMPUTER-AIDED DETECTION: INDICATION: ??RIGHT BREAST DENSITY 12/16/06 SCREENING MAMMOGRAM. COMPARISON: ??12/16/06 TECHNIQUE: ??FULL-FIELD DIGITAL MAMMOGRAPHY WITH COMPUTER-AIDED DETECTION. FINDINGS: ??SMALL DENSITY PRESENT ON THE RIGHT CC VIEW ONLY 12/16/06 DOES NOT PERSIST WITH SPOT COMPRESSION. ASSESSMENT: ??ACR CATEGORY 1, NEGATIVE. Chandrakant Montiel MD MAMMO from Last 3 Months or Most Recently Relevant to Health Maintenance Care Teams Marketing Copywriter Relationship Specialty [place] [address] [place] [address] PCP - General Family Practice 05/05/18
--- OUTSIDE RECORDS SUMMARY | 2024-06-15 07:38 | XMS_ITS | Data Portability ---
Author Organization [place] [employer], [id number] Address [address] [address] Care Team Providers Care Facilities Administrator Name Role Phone [facility] Primary Care Provider [phone] Assessment Encounter Date Assessment Date Assessment LastModified by Organization Details LastModified Time 12/14/2020 12/14/2020 [facility] amies Not available 12/14/2020 19:38:21 08/07/2022 08/07/2022 LABS WITH PRIMARY Not available 08/08/2022 08:18:24 11/06/2023 11/06/2023 LABS WITH PRIMARY Not available 11/06/2023 15:36:31 Plan of Treatment Reminders Order Date Submit Date Provider Last Modified By Organization Details Last Modified Time Details Appointments None recorded. Lab urinalysis, dipstick [address] [facility], [address] [place] [address], [address], 15:06:47 pathology study 2020 021 [facility], [address] [place], [address], 11:52:21 pap, LB + reflex HR HPV 2020 021 [facility], [address] [place], [address], 01/22/202 1 10:31:19 Pap test, slide(s), cervical 2021 022 [facility], [address], [address], [place], [address], 2 14:38:09 urinalysis, dipstick, auto 2022 023 [facility] Io246_inzngei rtners_dominguez le, [address] [facility], [address], [place], [address], 3 17:31:33 urinalysis, complete 2022 023 [facility], [address], [address], [place], [address], 3 18:15:15 culture, urine 2022 023 [facility], [address], [address], [place], [address], 3 18:15:21 Pap test, slide(s), cervical 2022 023 [facility], [address], [address], [place], [address], 3 18:15:56 Referral None recorded. Procedures None recorded. Surgeries None recorded. Imaging US, transvagina l 2020 021 [email or web address] [facility] [place], [address], [place], [address], 1 14:43:04 US, pelvis 2020 021 ami [facility] [place], [address], [place], [address], 1 15:06:02 US, pelvis, transabdomi nal + transvagina l 2020 021 [email or web address] [place], [address] [place] [address], [address], 13:12:51 DEXA 2021 022 [email or web address] [facility], [address] [place], [address], 11:10:15 Medication Orders None recorded. Patient TargetsNo targets recorded. Patient Instructions Encounter Date Encounter Id Patient Instructions Last Modified By Organization Details Last Modified Time 12/14/2020 [id number] has colonoscopy 12/29/2020-rev mammogram and calcium labs with primary amies Not available 12/14/2020 19:43:16 08/07/2022 [id number] handling fee* [email or web address] Not available 0 08/07/2022 18:19:08 BD ORDER Not available 2021 08:19:47 colonoscopy mammogram bone density and calcium rev Not available 08/08/2022 08:18:02 11/06/2023 [id number] colonoscopy, mammogram, bone density, dermatology and calcium reviewed Not available 11/06/2023 15:36:20 Reason for Referral None Reported. Results Created Date Observation Date Name Description Value Unit Range Abnormal Flag LastModifiedBy Organization Detail LastModifiedTime 12/14/19 21 12/14/2020 pap, LB + refle x HR HPV case report See note Not Available [facility] [address] [place], [address], 12/16/2020 10:31:18 12/14/19 21 12/14/2020 patho logy study case report See note Not Available [facility] [address] [place], [address], 12/16/2020 11:52:20 12/14/19 21 12/14/2020 urina lysis , dipst ick Unknown Analyte Clean catch Not Available [id number]_e pple [address], [address], 12/09/2020 13:16:45 12/14/19 21 12/14/2020 urina lysis , dipst ick Unknown Analyte Negati ve Not Available [id number]_k [address], [address], 12/09/2020 13:16:45 12/14/19 21 12/14/2020 urina lysis , dipst ick Unknown Analyte Negati ve Not Available [id number]_r [address], [address], 12/09/2020 13:16:45 12/14/19 21 12/14/2020 urina lysis , dipst ick Unknown Analyte Negati ve Not Available [id number]_c [address], [address], 12/09/2020 13:16:45 12/14/19 21 12/14/2020 urina lysis , dipst ick Unknown Analyte 1.010 Not Available [id number]_dhwkr _a [address], [address], 12/09/2020 13:16:45 12/14/19 21 12/14/2020 urina lysis , dipst ick Unknown Analyte negati ve Not Available [id number]_g [address], [address], 12/09/2020 13:16:45 12/14/19 21 12/14/2020 urina lysis , dipst ick Unknown Analyte 6.0 Not Available [id number] _a [address], [address], 12/09/2020 13:16:45 12/14/19 21 12/14/2020 urina lysis , dipst ick Unknown Analyte Negati ve Not Available [id number]_y [address], [address], 12/09/2020 13:16:45 12/14/19 21 12/14/2020 urina lysis , dipst ick Unknown Analyte 0.2 Not Available [id number] _a [address], [address], 12/09/2020 13:16:45 12/14/19 21 12/14/2020 urina lysis , dipst ick Unknown Analyte negati ve Not Available [id number]_a [address], [address], 12/09/2020 13:16:45 12/14/19 21 12/14/2020 urina lysis , dipst ick Unknown Analyte negati ve Not Available [id number] [address], [address], 12/09/2020 13:16:45 08/07/20 22 08/07/2022 GYNEC OLOGI C CYTOL OGY (PAP SMEAR ) gynecologic cytology SEE RESULT S BELOW Not Available [address], [place], [address], 08/14/2022 14:38:08 08/07/20 22 08/07/2022 HPV HIGH RISK TYPES DNA CERVI TRACI other HR HPV Negati ve negati ve Not Available [facility] [address], [place], [address], 08/14/2022 14:38:54 08/07/20 22 08/07/2022 HPV HIGH RISK TYPES DNA CERVI TRACI HPV16 DNA Negati ve negati ve Not Available [address], [place], [address], 08/14/2022 14:38:54 08/07/20 22 08/07/2022 HPV HIGH RISK TYPES DNA CERVI TRACI HPV18 DNA Negati ve negati ve Not Available [address], [place], [address], 08/14/2022 14:38:54 08/07/20 22 08/07/2022 HPV HIGH RISK TYPES DNA CERVI TRACI final diagnosis See note below Not Available [address], [place], [address], 08/14/2022 14:38:54 11/06/20 23 11/06/2023 UA WITH MICRO SCOPI C color urine Straw colorl ess, straw, light yellow , yellow Not Available [address], [place], [address], 11/12/2023 18:15:15 11/06/20 23 11/06/2023 UA WITH MICRO SCOPI C appearance urine Clear clear Not Available [address], [place], [address], 11/12/2023 18:15:15 11/06/20 23 11/06/2023 UA WITH MICRO SCOPI C glucose urine Negati ve mg/dL negati ve Not Available [address], [place], [address], 11/12/2023 18:15:15 11/06/20 23 11/06/2023 UA WITH MICRO SCOPI C bilirubin urine Negati ve negati ve Not Available [address], [place], [address], 11/12/2023 18:15:15 11/06/20 23 11/06/2023 UA WITH MICRO SCOPI C ketones urine Negati ve mg/dL negati ve Not Available [address], [place], [address], 11/12/2023 18:15:15 11/06/20 23 11/06/2023 UA WITH MICRO SCOPI C specific gravity urine 1.012 1.003- 1.035 Not Available [address], [place], [address], 11/12/2023 18:15:15 11/06/20 23 11/06/2023 UA WITH MICRO SCOPI C blood urine Negati ve negati ve Not Available [address], [place], [address], 11/12/2023 18:15:15 11/06/20 23 11/06/2023 UA WITH MICRO SCOPI C pH urine 6.5 5.0-7. 0 Not Available [address], [place], [address], 11/12/2023 18:15:15 11/06/20 23 11/06/2023 UA WITH MICRO SCOPI C protein urine Negati ve mg/dL negati ve Not Available [address], [place], [address], 11/12/2023 18:15:15 11/06/20 23 11/06/2023 UA WITH MICRO SCOPI C urobilinogen mg/dL Normal mg/dL normal , 2.0 Not Available [address], [place], [address], 11/12/2023 18:15:15 11/06/20 23 11/06/2023 UA WITH MICRO SCOPI C nitrite urine Negati ve negati ve Not Available [address], [place], [address], 11/12/2023 18:15:15 11/06/20 23 11/06/2023 UA WITH MICRO SCOPI C leukocyte esterase urine Negati ve negati ve Not Available [address], [place], [address], 11/12/2023 18:15:15 11/06/2016 1111/06/2023 UA WITH MICRO SCOPI C RBC urine 2 /hpf <=2 Not Available [address], [place], [address], 11/12/2023 18:15:15 11/06/20 23 11/06/2023 UA WITH MICRO SCOPI C WBC urine 1 /hpf <=5 Not Available [address], [place], [address], 11/12/2023 18:15:15 11/06/20 23 11/06/2023 URINE CULTU RE urine culture SEE RESULT S BELOW Not Available [address], [place], [address], 11/12/2023 18:15:21 11/06/20 23 11/06/2023 HPV HIGH RISK TYPES DNA CERVI TRACI other HR HPV Negati ve negati ve Not Available [address], [place], [address], 11/12/2023 18:15:39 11/06/20 23 11/06/2023 HPV HIGH RISK TYPES DNA CERVI TRACI HPV16 DNA Negati ve negati ve Not Available [address], [place], [address], 11/12/2023 18:15:39 11/06/20 23 11/06/2023 HPV HIGH RISK TYPES DNA CERVI TRACI HPV18 DNA Negati ve negati ve Not Available [address], [place], [address], 11/12/2023 18:15:39 11/06/20 23 11/06/2023 HPV HIGH RISK TYPES DNA CERVI TRACI final diagnosis See note below Not Available [address], [place], [address], 11/12/2023 18:15:39 11/06/20 23 11/06/2023 GYNEC OLOGI C CYTOL OGY (PAP SMEAR ) gynecologic cytology SEE RESULT S BELOW Not Available [address], [place], [address], 11/12/2023 18:15:56 11/06/2011/06/2023 urina lysis , dipst ick, auto Unknown Analyte Clean Catch Not Available [id number] maxine [address], [place], [address], 10/29/2023 16:42:40 11/06/20 23 11/06/2023 urina lysis , dipst ick, auto Unknown Analyte negati ve Not Available [id number] maxine [address], [place], [address], 10/29/2023 16:42:40 11/06/20 23 11/06/2023 urina lysis , dipst ick, auto Unknown Analyte negati ve Not Available [id number] maxine [address], [place], [address], 10/29/2023 16:42:40 11/06/20 23 11/06/2023 urina lysis , dipst ick, auto Unknown Analyte negati ve Not Available [id number] maxine [address], [place], [address], 10/29/2023 16:42:40 11/06/20 23 11/06/2023 urina lysis , dipst ick, auto Unknown Analyte 1.015 Not Available Lp192_zerwo pa maxine [address] [place], [address], 10/29/2023 16:42:40 11/06/20 23 11/06/2023 urina lysis , dipst ick, auto Unknown Analyte trace Not Available [id number]_anfel pa rtshaun [address], [place], [address], 10/29/2023 16:42:40 11/06/20 23 11/06/2023 urina lysis , dipst ick, auto Unknown Analyte 6.5 Not Available [id number] pa maxine [address], [place], [address], 10/29/2023 16:42:40 11/06/20 23 11/06/2023 urina lysis , dipst ick, auto Unknown Analyte negati ve Not Available [id number] goodman [address], [place], [address], 10/29/2023 16:42:40 11/06/20 23 11/06/2023 urina lysis , dipst ick, auto Unknown Analyte 0.2 Not Available [id number] goodman [address], [place], [address], 10/29/2023 16:42:40 11/06/20 23 11/06/2023 urina lysis , dipst ick, auto Unknown Analyte negati ve Not Available [id number] goodman [address], [place], [address], 10/29/2023 16:42:40 11/06/20 23 11/06/2023 urina lysis , dipst ick, auto Unknown Analyte negati ve Not Available Tay goodman [address], [place], [address], 10/29/2023 16:42:40 11/06/20 23 11/06/2023 urina lysis , dipst ick, auto Unknown Analyte yellow Not Available [id number]_ldpkt pa rtners_haa le [address] [facility] [address], [place], [address], 10/29/2023 16:42:40 11/06/20 23 11/06/2023 urina lysis , dipst ick, auto Unknown Analyte slight ly cloudy Not Available [id number] rtners_dominguez le [address] [facility] [address], [place], [address], 10/29/2023 16:42:40 12/14/19 21 US, trans vagin al No observ ation record ed. [email or web address] Katie [address], [place], [address], 12/14/2020 15:09:59 12/20/19 22 12/18/2021 MAMMO , scree devon, bilat eral No observ ation record ed. [address] Radiology Department [address] [place], [address], 12/20/2021 16:49:21 09/21/20 22 09/19/2022 DEXA No observ ation record ed. [facility] Radiology Department [address] [place], [address], 09/28/2022 11:51:07 03/07/20 23 03/05/2023 MAMMO , scree devon, bilat eral No observ ation record ed. [address] Radiology [address] [place], [address], 03/07/2023 10:09:39 06/09/20 24 06/08/2024 MAMMO , scree devon, bilat eral No observ ation record ed. [address] Radiology [address] [place], [address], 06/12/2024 14:41:51 Result Notes None recorded. Problems Name Status Onset Date Resolution Date Notes Provider Name and Address Organization Details Recorded Time Hyperlipidemia Active Emeli Alexis null, [place] - [facility] 11/06/2023 14:19:56 Disorder of thyroid gland Active Taisha Alexis null, [place] - [facility] 11/06/2023 14:20:12 Anxiety Active Taisha Alexis null, [place] - [facility] 11/06/2023 14:20:21 Problem Notes None recorded. 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 12/14/2020 12:51:07 1 Cervical Polypectomy/Bio psy Procedure Note ([facility]) completed Nelson Travis-Myhr e (TERMED) null[facility] 12/14/2020 13:50:40 Imaging Results Imaging Date Name Status LastModified by Organization Details LastModified Time 12/14/2020 US, transvaginal completed [email or web address] [address], [place], [address], 12/14/2020 15:09:59 12/18/2021 MAMMO, screening, bilateral completed [address] Radiology Department [address] [place], [address], 12/20/2021 16:49:21 09/19/2022 DEXA completed [facility] Radiology Department [address] [place], [address], 09/28/2022 11:51:07 03/05/2023 MAMMO, screening, bilateral completed [address] Radiology [address] [place], [address], 03/07/2023 10:09:39 06/08/2024 MAMMO, screening, bilateral active [email or web address] [facility] [address] [place], [address], 06/12/2024 14:41:51 Procedure Notes None recorded. Medical Equipment None Reported. Allergies Allergen ID Allergen Name Allergen Category Reaction Reaction Severity Criticality Documentation Date Start Date Code Code System Note Provider Name and Address Organization Details Recorded Time 79681 Medicinal product containin g penicilli n and acting as antibacte rial agent (product) medicatio n Not available Not available Not available 06/30/2020 02013 05 SNOMED *Note : rash Not Available [...] Address Organization Details Last Updated DateTime 2 61149.8 5 g 58 /min 30.4 kg/m2 162.56 cm 159 mm[Hg] 91 mm[Hg] Keyonna Darden (TERMED) [place] - [facility] 2 13:34:34 Date Recorded Body height Provider Name an d Address Organization Details Last Updated DateTime 11/06/2023 162.56 cm [facility]anesa [place] [facility] 11/06/2023 14:20:43 Date Recorded Body weight Body mass index (BMI) Body height Systolic blood pressure Diastolic blood pressure Provider Name and Address Organization Details Last Updated DateTime 12/14/2020 50278.63 g 30.9 kg/m2 162.56 cm 160 mm[Hg] 90 mm[Hg] Nelson hagan (TERMED) [place] - [facility] 12:59:22 Social History Question Answer Notes LastModified by Organizat ion Details LastModified Time Tobacco Smoking Status Former Smoker Tobacco *Status: Former Not Available [employer] 09/27/2020 03:59:31 Do You Have An Advance Directive? No Information not available 08/07/2022 What Is Your Level Of Alcohol Consumption? Occasional [email or web address] Information not available 08/07/2022 How Many Times Per Week Do You Consume Alcohol? 1-2 Times Per Week [email or web address] Information not available 08/07/2022 Is Blood Transfusion Acceptable In An Emergency? Yes [email or web address] Information not available 08/07/2022 What Is Your Level Of Caffeine Consumption? Moderate Caffeine *Status: Current Every Day *Qty: 2 Cups Daily [id number] Information not available 09/27/2020 Are You Currently Employed? Yes [email or web address] Information not available 08/07/2022 What Type Of Diet Are You Following? REGULAR [email or web address] Information not available 08/07/2022 What Is The Highest Grade Or Level Of School You Have Completed Or The Highest Degree You Have Received? [id number] [email or web address] Information not available 08/07/2022 How Many Times Per Week Do You Exercise? 5-7 Times Per Week [email or web address] Information not available 08/07/2022 History Of Domestic Violence No Denies Any History Of Domestic Violence Information not available 07/04/2020 Marital Status Informati on not available 07/04/2020 What Was The Date Of Your Most Recent Tobacco Screening? 08/07/2022 [email or web address] Information not available 08/07/2022 What Is Your Relationship Status? [email or web address] Information not available 08/07/2022 Are You Sexually Active? Yes Sexually Active [id number] Information not available 09/27/2020 Do You Use Any Illicit Or Recreational Drugs? No [email or web address] Information not available 08/07/2022 Has Tobacco Cessation Counseling Been Provided? No Information not available 08/07/2022 Are You Currently In School? No [email or web address] Information not available 08/07/2022 Sex: Unknown Functional Status Question Answer Note LastModified by Organizat ion Details LastModified Time What is your exercise level? Moderate Exercises on a regular basis *Note: 2-5 HOURS WEEKLY [id number] Information not available 09/27/2020 Mental Status None [...] 30 mcg/0.3 mL dose 12/06/2020 completed Taisha Alexis null, [place] - [facility] 10/29/2023 16:40:07 COVID-19, mRNA, LNP-S, PF, 30 mcg/0.3 mL dose 08/23/2021 completed Taisha Alexis null, [place] - [facility] 10/29/2023 16:40:08 COVID-19, mRNA, LNP-S, PF, 30 mcg/0.3 mL dose 11/16/2020 completed Taisha Alexis null, [place] - [facility] 10/29/2023 16:40:08 COVID-19, mRNA, LNP-S, PF, 30 mcg/0.3 mL dose, chelita-sucrose 03/20/2022 completed Taisha Alexis null, [place] - [facility] 10/29/2023 16:40:08 Past Encounters Encounter ID Performer Location Encounter Start Date Encounter Closed Date Diagnosis/Indication Diagnosis SNOMED-CT Code [id number] BEENA HERNANDEZ MD [id number] [facility] [address] [place] [address] 12/14/2020 12:44:52 12/15/2020 10:54:36 Gynecologic examination 14655781 Screening for malignant neoplasm of cervix 488518814 Polyp of cervix 94394127 Paraovarian cyst 1806588 07 [id number] BEENA HERNANDEZ MD [id number]_JUSL [facility] [address] [place] [address] 12/14/2020 14:40:22 12/14/2020 14:43:03 Paraovarian cyst 802352517 [id number] Beena Hernandez MD [id number] UZMARTROMULO_ [address] [address] 08/07/2022 12:52:39 08/08/2022 10:06:25 Screening for osteoporosis 033965707 Screening for malignant neoplasm of cervix 631192055 Hip pain 59108837 Vulvitis 40668159 [id number] Beena Hernandez MD [id number]_NLEG OPARTROMULO_ [address] [address] 11/06/2023 14:02:09 11/07/2023 14:57:20 Gynecologic examination 25711577 Screening for malignant neoplasm of cervix 359010280 Blood in urine 57742835 Vulvitis 63818304 Health Concerns Section Related Observation LastModified by Organization Detai ls LastModified Time None Recorded Concern Status LastModified by Organization Details LastModified Time None Recorded Advance Directives Directive N: Payers Encounter Date Sequence Insurance Name Policy Number Policy Joseph Covered Member ID Joseph Member ID Guarantor Name 12/14/2020 1 *SELF PAY* Jennie Shea 12/14/2020 1 *SELF PAY* Jennie Shea 08/07/2022 1 [employer] Taylor Morrell Monse [id number] Taylor Morrell Monse 11/06/2023 1 [employer] Taylor Morrell Monse [id number] Taylor Morrell Monse Notes Date Note Type Note Provider Name [...] endorses [place] of [place] [address] [facility],[address], [place], [address], [facility] - [facility] 12/14/2020 20:42:42 08/07/2022 text/html HPI Notes: Suresh iqbal is a sexually active menopausal female. She denies experiencing post-menopausal bleeding. She denies any concerning menopausal symptoms. Last pap smear was 866320. I reviewed with the patient today ASCCP [...] end[place] [address], [place], [address], [facility] - [facility] [employer] ENGINEER 08/08/2022 08:20:07 11/06/2023 text/html HPI Notes: Suresh iqbal is a sexually active menopausal female. She denies experiencing post-menopausal bleeding. She denies any concerning menopausal symptoms. Last pap smear was 999989. I reviewed with the patient today ASCCP [...] end[place] [address] [facility],[address], [place], [address], [employer] 11/06/2023 15:37:02 OBGyn Episode No OBEpisode recorded.
--- NOTE | 2024-06-15 07:45 | CRLHL7_ITS ---
For Patients: As a result of the Cures Act, medical imaging exams and procedure reports are released immediately into your electronic medical record. You may view this report before your referring provider. If you have questions, please contact your health care provider. DIGITAL DIAGNOSTIC LEFT MAMMOGRAM USING TOMOSYNTHESIS AND COMPUTER-AIDED DETECTION LEFT BREAST ULTRASOUND CLINICAL HISTORY: LEFT breast mass/asymmetry. COMPARISON: 06/08/2024. TECHNIQUE: Digital LEFT mammogram in two projections with computer-aided detection. Tomosynthesis was used in this interpretation. Real-time ultrasound imaging of LEFT breast with imaging documentation. BREAST COMPOSITION: There are areas of scattered fibroglandular density. FINDINGS: 3D spot compression CC/MLO LEFT breast mammogram images submitted. Decreased conspicuity of previously noted asymmetric density. No architectural distortion. No suspicious calcifications. Targeted LEFT breast ultrasound performed 8 o`clock 7 cm from the nipple. Normal breast tissue is present. No fibrocystic change or mass. IMPRESSION: No suspicious findings. Normal fibroglandular tissue is present. RECOMMENDATIONS: Annual bilateral screening mammography. Results and recommendations discussed with the patient. BI-RADS Category 2: Benign A lay language report of this examination will be provided to the patient. Dictated by Celso Howard MD @ 06/15/2024 8:55:19 AM jj/Dictated by: Celso oHward MD @ 06/15/2024 8:55:00 AM (Electronically Signed)
--- NOTE | 2024-06-15 08:15 | CRLHL7_ITS ---
For Patients: As a result of the Cures Act, medical imaging exams and procedure reports are released immediately into your electronic medical record. You may view this report before your referring provider. If you have questions, please contact your health care provider. PLEASE SEE DIGITAL DIAGNOSTIC LEFT MAMMOGRAM PERFORMED SAME DAY CRL:modesta byers/Dictated by: Celso Howard MD @ 06/15/2024 8:55:00 AM (Electronically Signed)
== END 2024-06-15 07:35 | disposition home or self-care (01) ==
PROVIDERS: Visit Provider Physician Assistant Medical
DX: N63.20 Unspecified lump in the left breast, unspecified quadrant (principal); R92.8 Other abnormal and inconclusive findings on diagnostic imaging of breast
CPT/HCPCS: 76642; 77065; G0279

== ENCOUNTER 2025-08-02 10:07 | Outpatient (CLI) | payer OTHER, SELFPAY ==
--- NOTE | 2025-08-02 10:15 | CRLHL7_ITS ---
For Patients: As a result of the Century Cures Act, medical imaging exams and procedure reports are released immediately into your electronic medical record. You may view this report before your referring provider. If you have questions, please contact your health care provider. INDICATION: BILATERAL SCREENING MAMMOGRAM, ASYMPTOMATIC 54 Y/O FEMALE COMPARISON: 06/15/2024, 06/08/2024, 03/05/2023 TECHNIQUE: Digital mammogram in CC and MLO projections including computer-aided detection (CAD) and tomosynthesis. BREAST COMPOSITION: The breasts are heterogeneously dense, which may obscure small masses. FINDINGS: No suspicious findings. ASSESSMENT: BI-RADS 2 Benign RECOMMENDATION: Annual screening mammogram. A lay language report of this examination will be provided to the patient. Dictated by: Celso Howard MD @ 08/02/2025 11:02:31 (Electronically Signed)
== END 2025-08-02 10:08 | disposition home or self-care (01) ==
LOC: MAMMO 10:07
PROVIDERS: Visit Provider Physician Assistant Medical
DX: Z12.31 Encounter for screening mammogram for malignant neoplasm of breast (principal); R92.333 Mammographic heterogeneous density, bilateral breasts
CPT/HCPCS: 77063; 77067